=== PATIENT | female | born 1960 | race Caucasian/White ===

== ENCOUNTER 2016-02-28 03:14 | Inpatient (IN) | payer OTHER ==
[~2016-02-28] VITALS: Ht 157.5 cm; Wt 74.3 kg
[2016-02-28] VITALS (17 sets, daily range): BP systolic 99–150; BP diastolic 49–97
--- NOTE | 2016-02-28 05:27 | ED CLINICAL REPORT ---
Clinical Report - Physicians/Mid Levels [facility] [address] [place] [address] 02/28/2016 3:15 Patient: ALFREDO KHAN Time Seen: 03:24; initial patient contact. Arrived- By ambulance. Historian- patient and EMS personnel. HISTORY OF PRESENT ILLNESS Chief Complaint: DYSPNEA and HISTORY OF CHRONIC OBSTRUCTIVE PULMONARY DISEASE. This started yesterday and is still present and worsening. It was gradual in onset and has been constant. The dyspnea is severe. No improvement of dyspnea with rest. The patient has had sputum production, a cough, wheezing, dyspnea on exertion and anxiety. No fever, sweating episodes, chills or chest pain or discomfort. No calf pain, foot swelling, orthopnea, paroxysmal nocturnal dyspnea or dizziness. No palpitations. Similar symptoms previously: Many times. Recent medical care: The patient was seen recently in a clinic. ( Dx'd w/ flu 2 weeks ago, Tx'd w/ Tamiflu and steroids). REVIEW OF SYSTEMS No nasal discharge or sinus drainage. All systems otherwise negative, except as recorded above. PAST HISTORY Emphysema. Surgeries: Had hysterectomy. Medications: None. Allergies: Codeine. SOCIAL HISTORY Current every day smoker. ADDITIONAL NOTES The nursing notes have been reviewed with agreement regarding the chief complaint, PMH and patient medications and allergies. PHYSICAL EXAM Vital Signs: 02/28/2016 03:19 BP: 160/87. HR: 100. RR: 30. O2 saturation: 100%. Temp: 98 F. Have been reviewed. Hypertensive. Heart rate normal. Tachypneic. Temperature normal. Oxygen saturation: on oxygen- oxygen saturation normal. Appearance: Anxious. Patient in moderate distress. ENT: Pharynx normal. Neck: Normal inspection. No jugular venous distention. CVS: Normal heart rate and rhythm. Heart sounds normal. Respiratory: Moderate respiratory distress with accessory muscle use, retractions, anxiety, tachypnea and hyperventilation. Speaks in single words. Moderately prolonged expirations. Moderately decreased air movement diffusely over both lungs. Expiratory mild bilateral wheezes diffusely. Back: Normal inspection. Skin: Skin warm and dry. Normal skin color. No rash. Extremities: No calf tenderness. No lower extremity edema. Neuro: Oriented X 3. No motor deficit. LABS, X-RAYS, AND EKG EKG: EKG time: (033). No acute process. No acute ischemia. Normal EKG. Normal sinus rhythm. Rate: 100. Normal P waves. Normal PORTILLO. Normal QRS complex. Normal axis. Normal ST and T waves, QT and QTc. Prior EKG unavailable. The study has been interpreted contemporaneously by me. The study has been independently viewed by me. The EKG appears to be a good tracing. Interpretation time: 333. Chest X-ray: No acute disease. Moderate hyperinflation present on the right and left with flattening of the diaphragm. Consistent with COPD. No infiltrate. Views: AP. Technique: good. The X-rays were independently viewed by me and interpreted contemporaneously by me. Prior films were not available for comparison. Interpretation time: 339. Laboratory Tests: CBC w Diff: (ETHAN: 02/28/2016 03:28) ( OrgRcvd 02/28/2016 03:37) Final results Test Result Flag Units (Reference) WHITE BLOOD COUNT 14.0 H K/uL (4.5-11.5) RED BLOOD COUNT 4.34 M/uL (4.00-5.20) HEMOGLOBIN 13.4 gm/dL (12.0-16.0) HEMATOCRIT 40.7 % (36.0-46.0) MEAN CELL VOLUME 94 fL (80-100) MEAN CORPUSCULAR HGB 31 pg (26-34) MEAN CORPUSCULAR HGB CONC 33 g/dL (31-37) RED CELL DISTRIBUTION WIDTH 13.4 % (11.6-14.8) PLATELET COUNT 292 K/uL (150-400) NEUTROPHIL % 79.3 H % (50-75) LYMPH % 12.4 L % (25-40) MONO % 6.3 % (3-14) EOSINOPHIL % 1.8 % (0-4) BASOPHIL % 0.2 % (0-2) [id number]: (ETHAN: 02/28/2016 03:28) ( MsgRcvd 02/28/2016 03:44) Final results Test Result Flag Units (Reference) D-DIMER QUANTITATIVE 0.42 ug/mLFEU (0.27-0.52) The primary value of this quantitative assay relates toits negative predictive value (i.e. exclusion) of pulmonaryembolism/deep vein thrombosis/DIC.Elevated levels of d-dimer may also occur with:, age, cancer, inflammation, liver disease,post-op, infection, hematoma, coronary disease, peripheralarteriopathy, bleeding disorders and thrombolytic treatment.Results should be correlated with other clinical andradiological data.Testing Methodology: Latex Immunoassay BNP: (ETHAN: 02/28/2016 03:28) ( OrgRcvd 02/28/2016 03:50) Final results Test Result Flag Units (Reference) B-TYPE NATRIURETIC PEPTIDE 24.5 pg/ml (5-100) CMP: (ETHAN: 02/28/2016 03:28) ( MsgRcvd 02/28/2016 03:49) Final results Test Result Flag Units (Reference) GLUCOSE 156 H mg/dL (70-110) BUN 9 mg/dL (7-18) CREATININE 0.7 mg/dL (0.6-1.3) Estimated GFR >60 mL/min Estimated GFR- >60 mL/min Note: Persistent reduction over 3 months in eGFR<60 mL/min/1.73 m2 defines CKD. Patients with eGFR values>=60 mL/min/1.73 m2 may also have CKD if evidence ofpersistent proteinuria. Additional information may be foundat [email or web address].org. SODIUM 139 mmol/L (136-145) POTASSIUM 4.3 mmol/L (3.5-5.1) CHLORIDE 103 mmol/L (98-107) CARBON DIOXIDE 26 mmol/L (21-32) CALCIUM 8.3 L mg/dL (8.5-10.1) TOTAL PROTEIN 7.2 g/dL (6.4-8.2) ALBUMIN 3.6 g/dL (3.3-5.0) BILIRUBIN, TOTAL 0.7 mg/dL (0.0-1.0) ALKALINE PHOSPHATASE 71 U/L (46-116) AST (SGOT) 47 H U/L (15-37) ALT (SGPT) 113 H U/L (12-78) ABG: (ETHAN: 02/28/2016 04:16) ( MsgRcvd 02/28/2016 04:26) Final results Test Result Flag Units (Reference) FIO2 0.28 L % (20-101) ABG MODE OF DELIVERY HFNC MODIFIED RICKIE TEST POSITIVE? NO LITERS PER MIN. 20 L/MIN (0-20) ARTERIAL BLOOD GAS SITE LR ARTERIAL BLOOD GAS pH 7.34 L (7.35-7.45) ABG PCO2 42.8 mmHg (35-45) ABG PO2 74.6 L mmHg (80.0-100.0) ABG BASE EXCESS -2.8 H mmol/L (-6.0--6.0) ABG HCO3 22.9 mmol/L (20.0-26.0) ABG TCO2 24.2 mmol/L (24.0-30.0) ABG QuYpI2i 73.6 H mmHg (7.0-14.0) *NOTE: Normal rangeis based on aFIO2 of 21% ABG SAT O2 95.2 % (95.1-100.0) ABG TOTAL HEMOGLOBIN 13.3 g/dL (12.0-16.0) ABG O2 HEMOGLOBIN 93.7 L % (95.0-100.0) ABG CARBOXYHEMOGLOBIN 1.5 % (0.5-1.5) ABG METHEMOGLOBIN 0.1 L % (0.4-1.5) ABG RHEMOGLOBIN 4.7 % COMMENTS HFNC @28%/ 2OLPM . PROGRESS AND PROCEDURES Discussed case with hospitalist, (call returned 05:27 Dr. Garcia). Reviewed test results. Agreed upon treatment plan and decision to admit. Health care provider will see patient in ED. Disposition: Admitted to the Critical Care Unit. Condition: stable. Admit decision based on need for intensive care and stabilization of condition. CLINICAL IMPRESSION Acute exacerbation of COPD. Hypoxia. (Electronically signed by Johann Perez Dr. 02/28/2016 7:53)
--- NOTE | 2016-02-28 05:27 | ED CLINICAL REPORT ---
Clinical Report - Physicians/Mid Levels [facility] [address] [place] [address] 02/28/2016 3:15 Patient: ALFREDO KHAN Time Seen: 03:24; initial patient contact. Arrived- By ambulance. Historian- patient and EMS personnel. HISTORY OF PRESENT ILLNESS Chief Complaint: DYSPNEA and HISTORY OF CHRONIC OBSTRUCTIVE PULMONARY DISEASE. This started yesterday and is still present and worsening. It was gradual in onset and has been constant. The dyspnea is severe. No improvement of dyspnea with rest. The patient has had sputum production, a cough, wheezing, dyspnea on exertion and anxiety. No fever, sweating episodes, chills or chest pain or discomfort. No calf pain, foot swelling, orthopnea, paroxysmal nocturnal dyspnea or dizziness. No palpitations. Similar symptoms previously: Many times. Recent medical care: The patient was seen recently in a clinic. ( Dx'd w/ flu 2 weeks ago, Tx'd w/ Tamiflu and steroids). REVIEW OF SYSTEMS No nasal discharge or sinus drainage. All systems otherwise negative, except as recorded above. PAST HISTORY Emphysema. Surgeries: Had hysterectomy. Medications: None. Allergies: Codeine. SOCIAL HISTORY Current every day smoker. ADDITIONAL NOTES The nursing notes have been reviewed with agreement regarding the chief complaint, PMH and patient medications and allergies. PHYSICAL EXAM Vital Signs: 02/28/2016 03:19 BP: 160/87. HR: 100. RR: 30. O2 saturation: 100%. Temp: 98 F. Have been reviewed. Hypertensive. Heart rate normal. Tachypneic. Temperature normal. Oxygen saturation: on oxygen- oxygen saturation normal. Appearance: Anxious. Patient in moderate distress. ENT: Pharynx normal. Neck: Normal inspection. No jugular venous distention. CVS: Normal heart rate and rhythm. Heart sounds normal. Respiratory: Moderate respiratory distress with accessory muscle use, retractions, anxiety, tachypnea and hyperventilation. Speaks in single words. Moderately prolonged expirations. Moderately decreased air movement diffusely over both lungs. Expiratory mild bilateral wheezes diffusely. Back: Normal inspection. Skin: Skin warm and dry. Normal skin color. No rash. Extremities: No calf tenderness. No lower extremity edema. Neuro: Oriented X 3. No motor deficit. LABS, X-RAYS, AND EKG EKG: EKG time: (033). No acute process. No acute ischemia. Normal EKG. Normal sinus rhythm. Rate: 100. Normal P waves. Normal PORTILLO. Normal QRS complex. Normal axis. Normal ST and T waves, QT and QTc. Prior EKG unavailable. The study has been interpreted contemporaneously by me. The study has been independently viewed by me. The EKG appears to be a good tracing. Interpretation time: 333. Chest X-ray: No acute disease. Moderate hyperinflation present on the right and left with flattening of the diaphragm. Consistent with COPD. No infiltrate. Views: AP. Technique: good. The X-rays were independently viewed by me and interpreted contemporaneously by me. Prior films were not available for comparison. Interpretation time: 339. Laboratory Tests: CBC w Diff: (ETHAN: 02/28/2016 03:28) ( MigRcvd 02/28/2016 03:37) Final results Test Result Flag Units (Reference) WHITE BLOOD COUNT 14.0 H K/uL (4.5-11.5) RED BLOOD COUNT 4.34 M/uL (4.00-5.20) HEMOGLOBIN 13.4 gm/dL (12.0-16.0) HEMATOCRIT 40.7 % (36.0-46.0) MEAN CELL VOLUME 94 fL (80-100) MEAN CORPUSCULAR HGB 31 pg (26-34) MEAN CORPUSCULAR HGB CONC 33 g/dL (31-37) RED CELL DISTRIBUTION WIDTH 13.4 % (11.6-14.8) PLATELET COUNT 292 K/uL (150-400) NEUTROPHIL % 79.3 H % (50-75) LYMPH % 12.4 L % (25-40) MONO % 6.3 % (3-14) EOSINOPHIL % 1.8 % (0-4) BASOPHIL % 0.2 % (0-2) [id number]: (ETHAN: 02/28/2016 03:28) ( MsgRcvd 02/28/2016 03:44) Final results Test Result Flag Units (Reference) D-DIMER QUANTITATIVE 0.42 ug/mLFEU (0.27-0.52) The primary value of this quantitative assay relates toits negative predictive value (i.e. exclusion) of pulmonaryembolism/deep vein thrombosis/DIC.Elevated levels of d-dimer may also occur with:, age, cancer, inflammation, liver disease,post-op, infection, hematoma, coronary disease, peripheralarteriopathy, bleeding disorders and thrombolytic treatment.Results should be correlated with other clinical andradiological data.Testing Methodology: Latex Immunoassay BNP: (ETHAN: 02/28/2016 03:28) ( MigRcvd 02/28/2016 03:50) Final results Test Result Flag Units (Reference) B-TYPE NATRIURETIC PEPTIDE 24.5 pg/ml (5-100) CMP: (ETHAN: 02/28/2016 03:28) ( MsgRcvd 02/28/2016 03:49) Final results Test Result Flag Units (Reference) GLUCOSE 156 H mg/dL (70-110) BUN 9 mg/dL (7-18) CREATININE 0.7 mg/dL (0.6-1.3) Estimated GFR >60 mL/min Estimated GFR- >60 mL/min Note: Persistent reduction over 3 months in eGFR<60 mL/min/1.73 m2 defines CKD. Patients with eGFR values>=60 mL/min/1.73 m2 may also have CKD if evidence ofpersistent proteinuria. Additional information may be foundat [email or web address].org. SODIUM 139 mmol/L (136-145) POTASSIUM 4.3 mmol/L (3.5-5.1) CHLORIDE 103 mmol/L (98-107) CARBON DIOXIDE 26 mmol/L (21-32) CALCIUM 8.3 L mg/dL (8.5-10.1) TOTAL PROTEIN 7.2 g/dL (6.4-8.2) ALBUMIN 3.6 g/dL (3.3-5.0) BILIRUBIN, TOTAL 0.7 mg/dL (0.0-1.0) ALKALINE PHOSPHATASE 71 U/L (46-116) AST (SGOT) 47 H U/L (15-37) ALT (SGPT) 113 H U/L (12-78) ABG: (ETHAN: 02/28/2016 04:16) ( MsgRcvd 02/28/2016 04:26) Final results Test Result Flag Units (Reference) FIO2 0.28 L % (20-101) ABG MODE OF DELIVERY HFNC MODIFIED RICKIE TEST POSITIVE? NO LITERS PER MIN. 20 L/MIN (0-20) ARTERIAL BLOOD GAS SITE LR ARTERIAL BLOOD GAS pH 7.34 L (7.35-7.45) ABG PCO2 42.8 mmHg (35-45) ABG PO2 74.6 L mmHg (80.0-100.0) ABG BASE EXCESS -2.8 H mmol/L (-6.0--6.0) ABG HCO3 22.9 mmol/L (20.0-26.0) ABG TCO2 24.2 mmol/L (24.0-30.0) ABG CrReY5m 73.6 H mmHg (7.0-14.0) *NOTE: Normal rangeis based on aFIO2 of 21% ABG SAT O2 95.2 % (95.1-100.0) ABG TOTAL HEMOGLOBIN 13.3 g/dL (12.0-16.0) ABG O2 HEMOGLOBIN 93.7 L % (95.0-100.0) ABG CARBOXYHEMOGLOBIN 1.5 % (0.5-1.5) ABG METHEMOGLOBIN 0.1 L % (0.4-1.5) ABG RHEMOGLOBIN 4.7 % COMMENTS HFNC @28%/ 2OLPM . PROGRESS AND PROCEDURES Discussed case with hospitalist, (call returned 05:27 Dr. Garcia). Reviewed test results. Agreed upon treatment plan and decision to admit. Health care provider will see patient in ED. Disposition: Admitted to the Critical Care Unit. Condition: stable. Admit decision based on need for intensive care and stabilization of condition. CLINICAL IMPRESSION Acute exacerbation of COPD. Hypoxia. (Electronically signed by Johann Perez Dr. 02/28/2016 7:53)
--- NOTE | 2016-02-28 05:28 | ED ORDER SUMMARY ---
..... Patient: ALFREDO KHAN OrderSheet [facility] VisitID: [id number] [address] [place] [address] 55y, F Registration Date/Time: 02/28/2016 ORDER SHEET Weight: 72.5 kg (stated) Allergies: Codeine GENERAL ORDERS: Chest 1V Urgent (03:26 02/28/2016 Vandana Harris) (Ack 3:27 CHagerty ER Wine Fermenter) (3:38 JQuarnoldo R.N.) CBC w Diff Urgent (03:02/28/2016 Vandana Harris) (Ack 3:27 CHagerty ER Wine Fermenter) (3:30 Dennis R.N.) CMP Urgent (03:02/28/2016 Vandana Harris) (Ack 3:27 CHagerty ER Wine Fermenter) (3:30 Dennis R.N.) BNP Urgent (03:02/28/2016 Vandana Harris) (Ack 3:27 CHagerty ER Wine Fermenter) (3:30 Dennis R.N.) D-Dimer Urgent (03:26 02/28/2016 Vandana Harris) (Ack 3:27 CHagerty ER Wine Fermenter) (3:30 Dennis R.N.) ABG (G) Urgent (04:16 02/28/2016 Zackerty ER Wine Fermenter verbal order read back to Vandana Harris) (Ack 4:18 CHagerty ER Wine Fermenter) (5:54 Dennis R.N.) MEDICATION ORDERS: Prednisone PO 40 mg (NOW) (03:24 02/28/2016 Vandana Harris) (3:30 Dennis R.N.) Levaquin PO 500 mg (NOW) (03:24 02/28/2016 Vandana Harris) (3:30 Dennis R.N.) IV FLUIDS: ORDER SHEET NOTES: [Electronically signed by Jose Martinez R.N. (06:55 02/28/2016)] [Electronically signed by Johann Perez Dr. (07:53 02/28/2016)] [Electronically locked/signed by Jose Martinez R.N. (06:55 02/28/2016)]
--- NOTE | 2016-02-28 05:28 | ED NURSING NOTES ---
Clinical Report - Nurses [facility] [address] [place] [address] 02/28/2016 3:15 Patient: ALFREDO KHAN TRIAGE Triage time 0320. Acuity: LEVEL 2. Chief Complaint: SHORTNESS OF BREATH and DIFFICULTY BREATHING. --03:29 Jose Martinez R.N. 03:19 02/28/16. BP: 160/87. HR: 100. RR: 30. O2 saturation: 100%. Temp: 98 F. Pain level now 0/10. --03:29 Jose Martinez R.N. Weight: 72.5 kg stated. Height/Length: 62 inches Per Patient. BMI: 29.3. --03:27 Jose Martinez R.N. Medications None. --03:23 Jose Martinez R.N. Allergies Codeine. --03:22 Jose Martinez R.N. History Arrived by EMS. Historian: EMS and patient. This started today. 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 PAST MEDICAL HX: Chronic obstructive pulmonary disease. SOCIAL HX: Former smoker. FALL RISK ASSESSMENT: Fall risk assessment completed. No fall risk identified. NUTRITIONAL RISK ASSESSMENT: The nutritional risk assessment revealed no deficiencies. FUNCTIONAL ASSESSMENT: Functional assessment: no impairments noted. LEARNING NEEDS ASSESSMENT: The learning needs assessment revealed no barriers. SKIN INTEGRITY ASSESSMENT: Skin integrity risk assessment completed. No skin integrity risk identified. --03:29 Jose Martinez R.N. PROBLEMS: COPD - Chronic Obstructive Pulmonary Disease. --03:23 Jose Martinez R.N. ADDITIONAL SURGERIES: Hysterectomy. --03:23 Jose Martinez R.N. PHYSICAL ASSESSMENT GENERAL / NEURO / PSYCH: Alert. Oriented X 4. Appears in distress. HEENT: Mucous membranes are pink. RESPIRATORY: Moderate respiratory distress. The patient can speak in full sentences. Chest nontender. Decreased breath sounds. CVS: Capillary refill less than 2 seconds. GI / : Abdomen soft and nontender. SKIN: Skin is warm and dry. Normal skin turgor. --03:29 Jose Martinez R.N. RESPIRATORY: Wheezing present. --03:41 Jose Martinez R.N. NURSING PROGRESS NOTES Oxygen administered. Monitoring of patient in place. Patient gowned. Head of bed elevated. Reassurance given. Patient identifiers checked. Call light placed in reach. Bed placed in lowest position. Brakes of bed on. --03:30 Jose Martinez R.N. 03:30 02/28/2016 Levaquin (Levofloxacin) PO 500 mg given. --03:30 Jose Martinez R.N. 03:30 02/28/2016 Prednisone PO 40 mg given. Allergies verified and confirmed 5 rights. --03:30 Jose Martinez R.N. 03:35. Patient ID band checked for patient name and birthdate: patient confirmed. Blood samples drawn from the peripheral IV site by nurse ; labeled in presence of the patient and sent to lab: rainbow set. Initial blood discarded and additional blood sent to lab. Line flushed with 10 mL normal saline post blood draw. --04:18 Bi Andre R.N. EKG time: (3:34). EKG was performed by a tech and shown to the ED physician. --04:25 Willian العلي. DISPOSITION / DISCHARGE Departure time: 0650. Condition at departure: improved. Admitted to the Critical Care Unit (650 AM). --06:54 Jose Martinez R.N. 06:53 02/28/16. BP: 149/74. HR: 88. RR: 20. O2 saturation: 96%. Temp: 98 F. Pain level now 0/10. --06:54 Jose Martinez R.N. Report was given to a nurse via a phone call. Report included patient's care, treatment, medications, reviewed medication reconcilliation, and condition (including any recent changes or anticipated changes). All questions were answered. Report was acknowledged and care was transferred. --06:55 Jose Martinez R.N. Locked/Released at 02/28/2016 6:55 by Jose Martinez R.N.
--- NOTE | 2016-02-28 05:28 | ED ORDER SUMMARY ---
..... Patient: ALFREDO KHAN OrderSheet [facility] VisitID: [id number] [address] [place] [address] 55y, F Registration Date/Time: 02/28/2016 ORDER SHEET Weight: 72.5 kg (stated) Allergies: Codeine GENERAL ORDERS: Chest 1V Urgent (03:26 02/28/2016 Vandana Harris) (Ack 3:27 CHagerty ER Oracle Distribution Consultant) (3:38 JQuarnoldo R.N.) CBC w Diff Urgent (03:02/28/2016 Vandana Harris) (Ack 3:27 CHagerty ER [employer] Distribution Consultant) (3:30 Dennis R.N.) CMP Urgent (03:02/28/2016 Vandana Harris) (Ack 3:27 CHagerty ER [employer] Distribution Consultant) (3:30 Dennis R.N.) BNP Urgent (03:02/28/2016 Vandana Harris) (Ack 3:27 CHagerty ER Oracle Distribution Consultant) (3:30 Dennis R.N.) D-Dimer Urgent (03:26 02/28/2016 Vandana Harris) (Ack 3:27 CHagerty ER [employer] Distribution Consultant) (3:30 Dennis R.N.) ABG (G) Urgent (04:16 02/28/2016 Zackerty ER Oracle Distribution Consultant verbal order read back to Vandana Harris) (Ack 4:18 CHagerty ER Oracle Distribution Consultant) (5:54 Dennis R.N.) MEDICATION ORDERS: Prednisone PO 40 mg (NOW) (03:24 02/28/2016 Vandana Harris) (3:30 Dennis R.N.) Levaquin PO 500 mg (NOW) (03:24 02/28/2016 Vandana Harris) (3:30 Dennis R.N.) IV FLUIDS: ORDER SHEET NOTES: [Electronically signed by Jose Mratinez R.N. (06:55 02/28/2016)] [Electronically signed by Johann Perez Dr. (07:53 02/28/2016)] [Electronically locked/signed by Jose Martinez R.N. (06:55 02/28/2016)]
--- NOTE | 2016-02-28 05:28 | ED NURSING NOTES ---
Clinical Report - Nurses [facility] [address] [place] [address] 02/28/2016 3:15 Patient: ALFREDO KHAN TRIAGE Triage time 0320. Acuity: LEVEL 2. Chief Complaint: SHORTNESS OF BREATH and DIFFICULTY BREATHING. --03:29 Jose Martinez R.N. 03:19 02/28/16. BP: 160/87. HR: 100. RR: 30. O2 saturation: 100%. Temp: 98 F. Pain level now 0/10. --03:29 Jose Martinez R.N. Weight: 72.5 kg stated. Height/Length: 62 inches Per Patient. BMI: 29.3. --03:27 Jose Martinez R.N. Medications None. --03:23 Jose Martinez R.N. Allergies Codeine. --03:22 Jose Martinez R.N. History Arrived by EMS. Historian: EMS and patient. This started today. 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 PAST MEDICAL HX: Chronic obstructive pulmonary disease. SOCIAL HX: Former smoker. FALL RISK ASSESSMENT: Fall risk assessment completed. No fall risk identified. NUTRITIONAL RISK ASSESSMENT: The nutritional risk assessment revealed no deficiencies. FUNCTIONAL ASSESSMENT: Functional assessment: no impairments noted. LEARNING NEEDS ASSESSMENT: The learning needs assessment revealed no barriers. SKIN INTEGRITY ASSESSMENT: Skin integrity risk assessment completed. No skin integrity risk identified. --03:29 Jose Martinez R.N. PROBLEMS: COPD - Chronic Obstructive Pulmonary Disease. --03:23 Jose Martinez R.N. ADDITIONAL SURGERIES: Hysterectomy. --03:23 Jose Martinez R.N. PHYSICAL ASSESSMENT GENERAL / NEURO / PSYCH: Alert. Oriented X 4. Appears in distress. HEENT: Mucous membranes are pink. RESPIRATORY: Moderate respiratory distress. The patient can speak in full sentences. Chest nontender. Decreased breath sounds. CVS: Capillary refill less than 2 seconds. GI / : Abdomen soft and nontender. SKIN: Skin is warm and dry. Normal skin turgor. --03:29 Jose Martinez R.N. RESPIRATORY: Wheezing present. --03:41 Jose Martinez R.N. NURSING PROGRESS NOTES Oxygen administered. Monitoring of patient in place. Patient gowned. Head of bed elevated. Reassurance given. Patient identifiers checked. Call light placed in reach. Bed placed in lowest position. Brakes of bed on. --03:30 Jose Martinez R.N. 03:30 02/28/2016 Levaquin (Levofloxacin) PO 500 mg given. --03:30 Jose Martinez R.N. 03:30 02/28/2016 Prednisone PO 40 mg given. Allergies verified and confirmed 5 rights. --03:30 Jose Martinez R.N. 03:35. Patient ID band checked for patient name and birthdate: patient confirmed. Blood samples drawn from the peripheral IV site by nurse ; labeled in presence of the patient and sent to lab: rainbow set. Initial blood discarded and additional blood sent to lab. Line flushed with 10 mL normal saline post blood draw. --04:18 Bi Andre R.N. EKG time: (3:34). EKG was performed by a tech and shown to the ED physician. --04:25 Willian العلي. DISPOSITION / DISCHARGE Departure time: 0650. Condition at departure: improved. Admitted to the Critical Care Unit (650 AM). --06:54 Jose Martinez R.N. 06:53 02/28/16. BP: 149/74. HR: 88. RR: 20. O2 saturation: 96%. Temp: 98 F. Pain level now 0/10. --06:54 Jose Martinez R.N. Report was given to a nurse via a phone call. Report included patient's care, treatment, medications, reviewed medication reconcilliation, and condition (including any recent changes or anticipated changes). All questions were answered. Report was acknowledged and care was transferred. --06:55 Jose Martinez R.N. Locked/Released at 02/28/2016 6:55 by Jose Martinez R.N.
--- NOTE | 2016-02-28 05:58 | DIAGNOSTIC IMAGING REPORT ---
PROCEDURE: XR CHEST 1 VIEW INDICATION: SHORTNESS OF BREATH TECHNIQUE: Portable AP view (0335 hours). COMPARISON: Compared to chest x-ray [id number]. FINDINGS: Lungs are clear. Heart and mediastinum are normal. Thorax is normal. IMPRESSION: 1. Negative chest.
--- NOTE | 2016-02-28 07:53 | ED MED RECONCILIATION SUMMARY ---
Patient: ALFREDO KHAN Medication Reconciliation Report [facility] VisitID: [id number] [address] [place] [address] 55y, F Registration Date/Time: 02/28/2016 Weight: 72.5 kg Height/Length: 62 in. BMI: 29.3 ALLERGIES: Codeine The patient's Home Medications are listed below: NONE. The source(s) of the original Home Medication information: Not obtained. The following Medications were given to the patient in the Emergency Department: Levaquin [PO] PO 500 mg, administered: 02/28/2016 3:30:00 AM Prednisone [PO] PO 40 mg, administered: 02/28/2016 3:30:00 AM The following Medications were prescribed to the patient: None.
--- NOTE | 2016-02-28 07:53 | ED DISCHARGE INSTRUCTIONS ---
Patient: ALFREDO KHAN General Instructions [facility] VisitID: [id number] [address] [place] [address] 55y, F Registration Date/Time: 02/28/2016 Acute exacerbation of COPD. Hypoxia. (Electronically signed by Johann Perez Dr. 02/28/2016 7:53)
--- NOTE | 2016-02-28 07:53 | ED MED RECONCILIATION SUMMARY ---
Patient: ALFREDO KHAN Medication Reconciliation Report [facility] VisitID: [id number] [address] [place] [address] 55y, F Registration Date/Time: 02/28/2016 Weight: 72.5 kg Height/Length: 62 in. BMI: 29.3 ALLERGIES: Codeine The patient's Home Medications are listed below: NONE. The source(s) of the original Home Medication information: Not obtained. The following Medications were given to the patient in the Emergency Department: Levaquin [PO] PO 500 mg, administered: 02/28/2016 3:30:00 AM Prednisone [PO] PO 40 mg, administered: 02/28/2016 3:30:00 AM The following Medications were prescribed to the patient: None.
--- NOTE | 2016-02-28 07:53 | ED MAR SUMMARY ---
..... Medication Administration Record [facility] [address] [place] [address] Patient: ALFREDO KHAN Visit ID: [id number] 55y, F Weight: 72.5 kg Height/Length: 62 in BMI: 29.3 ALLERGIES: Codeine Given 03:02/28/2016 Jose Martinez R.N. Medication Administered: PREDNISONE [PO], Dose: 40 mg PO. Medication Ordered: Prednisone PO 40 mg (NOW). Given 03:02/28/2016 Jose Martinez R.N. Medication Administered: LEVAQUIN [PO] (LEVOFLOXACIN), Dose: 500 mg PO. Medication Ordered: Levaquin PO 500 mg (NOW).
--- NOTE | 2016-02-28 07:53 | ED MAR SUMMARY ---
..... Medication Administration Record [facility] [address] [place] [address] Patient: ALFREDO KHAN Visit ID: [id number] 55y, F Weight: 72.5 kg Height/Length: 62 in BMI: 29.3 ALLERGIES: Codeine Given 03:02/28/2016 Jose Martinez R.N. Medication Administered: PREDNISONE [PO], Dose: 40 mg PO. Medication Ordered: Prednisone PO 40 mg (NOW). Given 03:02/28/2016 Jose Martinez R.N. Medication Administered: LEVAQUIN [PO] (LEVOFLOXACIN), Dose: 500 mg PO. Medication Ordered: Levaquin PO 500 mg (NOW).
--- NOTE | 2016-02-28 07:53 | ED DISCHARGE INSTRUCTIONS ---
Patient: ALFREDO KHAN General Instructions [facility] VisitID: [id number] [address] [place] [address] 55y, F Registration Date/Time: 02/28/2016 Acute exacerbation of COPD. Hypoxia. (Electronically signed by Johann Perez Dr. 02/28/2016 7:53)
--- NOTE | 2016-02-28 08:09 | HISTORY AND PHYSICAL ---
ADMITTED: 02/28/2016 HISTORY OF PRESENT ILLNESS: The patient initially seen in the emergency department about 5:30 a.m. The patient is a 55-year-old woman who developed progressively worsening shortness breath and wheezing over the last 24 hours, not responding to home albuterol and Combivent inhalers. She called 911 early this morning after midnight and was brought into the emergency department. She required BiPAP on the way into the hospital due to pronounced respiratory distress and low oxygen saturations. She was able to be switched to high flow nasal cannula oxygen in the emergency department after she had had nebulizer treatment with DuoNeb and administration of prednisone 40 mg p.o. and Levaquin. She was slowly improving. She states she had an episode of flu 2 weeks ago, although she not sure that the influenza screen was done. She was treated with Zithromax and prednisone for a 5-day treatment and was given a Combivent Respimat inhaler in addition to her albuterol inhaler. She felt this was helping a little bit. She tried to return to work and worked about 8 days straight and then thinks she got overtired. She was out and about yesterday helping some friends, but was quite short of breath and her breathing worsened throughout the day and evening. She became extremely short of breath as the evening progressed, causing her to call 911. She is a former smoker. She quit about 2 weeks ago. She denies smoking since then, though she mentioned in the emergency department that may have smoked a cigarette or 2 in the last week. She does not have usual doctor in the area that she follows with. MEDICAL/SURGICAL HISTORY: Past medical history: Remarkable for COPD of a mild-to -moderate degree. She had one episode of severe pneumonia about 6 years ago and was hospitalized here at [facility] and had septicemia at that time. She has not had pneumonias since. She thinks she has a tendency towards high blood pressure, but has not been treated for this. She denies other problems. 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 She also has had 1 normal spontaneous vaginal delivery and 1 . She had a hysterectomy with salpingo- oophorectomy done about 5 years ago for a number of pelvic problems. She has done well since then. She denies other surgeries. MEDICATIONS: 1. Albuterol metered-dose inhaler 2. Combivent Respimat inhaler. ALLERGIES: 1. CODEINE. 2. LATEX. 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 She is and is planning to be . Her first of melanoma. She has been a smoker up until 2 weeks ago. She does drink a glass of wine fairly regularly. FAMILY HISTORY: Remarkable for a father who of leukemia at age 56. Mother of a brain tumor at age 60. REVIEW OF SYSTEMS: HEENT: Has been okay. Respiratory: As noted above. Cardiovascular is okay with no heart problems that she has been aware of. Gastroenterology has been okay except for some slight heartburn at times. Musculoskeletal is okay with no major problems other than amputation of her right index finger as a child. Neurologic is okay. Psychiatric is okay. Skin is okay with no problems. PHYSICAL EXAMINATION: GENERAL: Reveals the patient to be a white female, appearing to be her stated age. She is having some faint wheezing. She is on high flow nasal cannula oxygen. VITAL SIGNS: Initial blood pressure readings in the emergency department show blood pressure 160/87 range. Temperature is 98. Pulse is around 100. HEENT: Head is normal. Ear canals and tympanic membranes are normal. Eyes show pupils equal, round, react to light with normal extraocular movements. Fundi show flat disks, normal vessels. Nose and throat are clear. Dentition is okay. NECK: Shows no adenopathy. BREASTS: Show no masses. There is no axillary adenopathy. CHEST: Reveals diffuse faint inspiratory rhonchi and quite diffuse high-pitched expiratory wheezes. Air movement is significantly reduced. HEART: Reveals normal S1 and S2 with no distinct murmur. ABDOMEN: Nontender with no organomegaly or mass. Bowel tones are normal. PELVIC: Not done. RECTAL: Not done. EXTREMITIES: Show no edema. Pulses are normal. NEUROLOGIC: Reveals the patient to be alert and oriented x3. Cranial nerves normal. Motor and sensory exams are normal. SKIN: Shows no rashes or skin growths. LAB/IMAGING: Chest x-ray shows heart size to be normal with no infiltrate. Diaphragms are somewhat flattened. EKG shows normal sinus rhythm with no significant ST-segment elevations or depressions. [place] is normal. Laboratory studies show white blood cell count to be 14,000 with hemoglobin of 13.3 and hematocrit 40.7. BNP is 24.5. Sodium is 139, potassium 4.3, chloride 103, CO2 of 26, glucose 156, creatinine 0.7, BUN is 9. SGOT is 47, SGPT is 113, bilirubin 0.7. D-dimer is 0.42. ABGs on high flow nasal cannula oxygen show pH 7.34, pCO2 42 and PO2 of 74.6. IMPRESSION: 1. The patient is presenting with severe chronic obstructive pulmonary disease exacerbation with marked bronchospasm. She is responding to initial treatment. She has a history of smoking and hopefully has stopped. She has history of recent respiratory illness. She is showing elevated blood pressure readings initially. She also has a somewhat elevated blood sugar and some slightly abnormal liver enzymes. PLAN: The patient is admitted to the ICU initially for the high flow nasal cannula treatment and nebulizer treatments with DuoNeb and with albuterol in between. DuoNeb treatments if necessary. She will also be started on Solu-Medrol 125 mg IV every 6 hours. She will be placed on Accu-Cheks and sliding scale insulin if necessary. She will be switched to ceftriaxone IV to cover for a low-grade bronchitis. Nasal swab will be sent for influenza. She will have vital signs followed and blood pressure treated as necessary. She will be started on lorazepam p.o. if necessary for anxiety and tremulousness related to nebulizer treatments. She will be encouraged to stop smoking. Hospitalization will probably be at least 2 midnights.
--- NOTE | 2016-02-28 08:12 | Progress Note ---
Subjective General Note Date: February 28, 2016 Admission Date: February 28, 2016 Hospital Day: 1 PCP: Suzie Ornelas M.D. Status: Inpatient Advanced Directive: FULL CODE Room: 304 Brief History: The patient is a 55-year-old white female with a significant past mental history of COPD who presented to [facility] emergency department secondary to complaints of shortness of breath. [facility] ER evaluation was consistent with exacerbation of COPD. Secondary to the above, the patient was admitted by Jovanny Garcia M.D. for further evaluation and treatment For other history present illness, past medical history, family history, social history, review of systems, and admission physical examination please see the patient's history and physical examination and ER visit note in the patient's medical record. Subjective: The patient has persistent mild shortness of breath. Significant anxiety Patient requests: Patient requests medications for anxiety Medications and Allergies Medications Current Medications Sig/Patrick Start time Last Medication Dose Route Stop Time Status Admin Methylprednisolone 125 MG Q6HR 02/27 1200 AC Sodium Succinate IV Ceftriaxone Sodium/ 50 ML DAILY 02/27 0900 AC Dextrose IV Albuterol/Ipratropium 3 ML RTQ6H 02/27 0800 AC 02/27 IN 0744 Insulin Human Lispro See Dose ACHS 02/27 0730 AC Insts (1) SC Lorazepam 0.5 MG Q6H PRN 02/27 0700 AC PO Sodium Chloride 1,000 ML ASDIRECTED 02/27 0700 AC IV Acetaminophen See Dose Q4H PRN 02/27 0645 AC Insts (2) PO Albuterol Sulfate 2.5 MG RTQ2H PRN 02/27 0645 AC IN Pantoprazole Sodium 40 MG DAILY@0600 02/27 0600 AC IV Dose Instructions: (1)Insulin Human Lispro: MEDIUM DOSE: ACCUCHECK AND SLIDING SCALE >>To change sliding scale DISCONTINUE this order and enter a NEW order. Thanks< (2)Acetaminophen: 325 - 650 MG Allergies Coded Allergies: Codeine (10/16/09) Corticosteroids (10/16/09) Metoclopramide (10/16/09) Morphine (10/16/09) Uncoded Allergies: Food Allergies: NKA Latex Allergy: N Med Allergies: Physical Exam Vital Signs / I&Os Vital Signs Date Time Temp Pulse Resp B/P Pulse O2 O2 Flow FiO2 Ox Delivery Rate 02/27 743 5.0 01/23 0705 97.9 96 23 122/78 99 Nasal 6.0 Cannula 02/27 0515 20.0 02/27 0431 20.0 02/27 0402 20.0 02/27 0345 20.0 02/27 0330 25.0 General Appearance Alert, Oriented X3, Cooperative, No acute distress Lungs minimal bilateral expiratory wheezes Cardiovascular Regular rate and rhythm, Normal S1 and S2 Abdomen Normal bowel sounds, Soft, No tenderness Extremities No cyanosis, No clubbing, No edema Neurological Grossly normal Psych/Mental Status Mental status normal, Mood normal LAB Results Laboratory Tests 02/27 02/27 02/27 0416 0328 0328 Blood Gas Sample Site LR Total CO2 (24.0 - 30.0 mmol/L) 24.2 ABG pH (7.35 - 7.45) 7.34 ABG pCO2 at Pt Temp (35 - 45 mmHg) 42.8 ABG pO2 at Pt Temp (80.0 - 100.0 mmHg) 74.6 ABG HCO3 (20.0 - 26.0 mmol/L) 22.9 ABG O2 Sat Calc/Ender (95.1 - 100.0 %) 95.2 ABG Base Excess (-6.0 - -6.0 mmol/L) -2.8 ABG Reduced Hgb (%) 4.7 ABG Carboxyhemoglobin (0.5 - 1.5 %) 1.5 ABG Methemoglobin (0.4 - 1.5 %) 0.1 Adria Test NO Other Total Hgb (12.0 - 16.0 g/dL) 13.3 A-a O2 Gradient (7.0 - 14.0 mmHg) 73.6 Hgb O2 Saturation (95.0 - 100.0 %) 93.7 O2 Liters/Min (0 - 20 L/MIN) 20 Vent Mode HFNC FiO2 (20 - 101 %) 0.28 Blood Gas Comments HFNC @28%/ 2OLPM Chemistry B-Natriuretic Peptide (5 - 100 pg/ml) 24.5 Procalcitonin (0 - 0.5 ng/mL) <0.5 02/278 Chemistry Plasma Sodium (136 - 145 mmol/L) 139 Plasma Potassium (3.5 - 5.1 mmol/L) 4.3 Plasma Chloride (98 - 107 mmol/L) 103 CO2 (Enzymatic) (21 - 32 mmol/L) 26 BUN (7 - 18 mg/dL) 9 Creatinine (0.6 - 1.3 mg/dL) 0.7 Est GFR ( Amer) (mL/min) >60 Est GFR (Non-Af Amer) (mL/min) >60 Glucose (70 - 110 mg/dL) 156 Plasma Calcium (8.5 - 10.1 mg/dL) 8.3 Total Bilirubin (0.0 - 1.0 mg/dL) 0.7 AST (15 - 37 U/L) 47 ALT (12 - 78 U/L) 113 Alkaline Phosphatase (46 - 116 U/L) 71 Total Protein (6.4 - 8.2 g/dL) 7.2 Albumin (3.3 - 5.0 g/dL) 3.6 Coagulation D-Dimer, Quantitative (0.27 - 0.52 ug/mLFEU) 0.42 Hematology WBC (4.5 - 11.5 K/uL) 14.0 RBC (4.00 - 5.20 M/uL) 4.34 Hgb (12.0 - 16.0 gm/dL) 13.4 Hct (36.0 - 46.0 %) 40.7 MCV (80 - 100 fL) 94 MCH (26 - 34 pg) 31 RDW (11.6 - 14.8 %) 13.4 Neut % (Auto) (50 - 75 %) 79.3 Lymph % (Auto) (25 - 40 %) 12.4 [place] % (Auto) (3 - 14 %) 6.3 Eos % (Auto) (0 - 4 %) 1.8 Baso % (Auto) (0 - 2 %) 0.2 Plt Count, EDTA (150 - 400 K/uL) 292 PUBS MCHC (31 - 37 g/dL) 33 Microbiology Date/Time Procedure - Status Source Growth 02/27 0900 Influenza Screen - COMP NASALPHAR 02/27 UNK MRSA Screen - COLB NASAL Assessment and Plan Problem List 1. Nicotine dependence Status Chronic Onset Date Unknown Plan -Patient with history of nicotine dependence-smoking -Recently quit smoking -NicoDerm patch when necessary -Smoking cessation education -Encourage smoking abstinence post discharge 2. Abnormal LFTs Status Acute Onset Date Unknown Plan -Patient with mild elevation of LFTs -Repeat in a.m. -No history of significant alcohol abuse but patient does consume alcoholic beverages -Monitor 3. Hyperglycemia Status Acute Onset Date Unknown Plan -Patient with findings of hyperglycemia -Check hemoglobin A1c -Insulin sliding scale -Monitor 4. COPD exacerbation Plan -Patient presents with findings of exacerbation COPD -DuoNeb, albuterol, corticosteroids, oxygen administration -Antianxiety agents -Monitor -Status improved since admission Current status: Fair, improved Anticipated discharge date: Anticipated discharge in 1-2 days Anticipated discharge placement: Home Patient care time: Time spent in chart review, patient interview, physical exam, CPOE, and care documentation: 25 minutes Visit to patient today: 1 Complexity of care: Moderate E&M Codes Rounding: Inpt-Moderate/[id number]
--- NOTE | 2016-02-28 08:58 | NUR ---
Patient in bed resting at this time. Patient on 5L NC sats 99%. SOB noted with exertion. Denies pain. Patient tolerating PO intake. Clear liquid diet. Denies nausea. Anxiety noted. Ativan 0.5 mg given PO. Patient instructed to cough and deep breath frequently. Patient up to BSC independently. IV RAC patent 75cc/hr. No complaints at this time. Pleasant and cooperative with care. Will continue to monitor.
--- NOTE | 2016-02-28 09:58 | NUR ---
Patient states anxiety is better. Ativan effective. Will continue to monitor.
--- NOTE | 2016-02-28 14:58 | NUR ---
Patient complained of anxiety. Ativan 0.5 mg given PO. Will continue to monitor.
--- NOTE | 2016-02-28 15:58 | NUR ---
Patient states anxiety is better. Ativan effective. Will continue to monitor.
--- NOTE | 2016-02-28 18:30 | NUR ---
Patient sitting up in bed watching TV. Patient tolerating good PO intake. Denies pain and nausea. IV RAC patent 75cc/hr. Patient up to BSC independently. Sob noted with exertion. 3L NC sats 98%. No complaints at this time. Pleasant and cooperative with care. Will continue to monitor.
--- NOTE | 2016-02-28 21:45 | NUR ---
PT REMAINS CCU STATUS.PT IS ALERT AND ORIENTED X3. NO COMPLAINTS OF PAIN. BOUTS OF COUGHING CAUSE PT TO BECOME SOB - O2 SATS ON 3 LITERS NC AT 97%. PT COMPAINTS OF FEELING AGGITATED - MEDICATED WITH PO ATIVAN PER REQUEST. RESPIRATORY THERAPIST HAS BEEN IN TO SEE PT. NO CHEST PAIN, NO HEART PALPITATIONS. PT MOVING AROUND IN BED ON OWN. TELE SHOWS SINUS TACH, HEART RATE AT 103. LAST BLOOD PRESSUREA T 150/86. RESPIRATIONS AT 26. PT WAS GIVEN AN HS SNACK AFTER ADMINISTRATION OF INSULIN SC. IV TO RAC UNREMARKABLE - INFUSING NS AT 75/HR. CALL LIGHT WITHIN REACH. NO FURTHER REQUESTS AT THIS TIME.
[2016-02-29] VITALS (17 sets, daily range): BP systolic 107–147; BP diastolic 57–96
--- NOTE | 2016-02-29 06:12 | NUR ---
0410 - AM LABS DRAWN ORDERED. NO COMPLAINTS OF PAIN. ATIVAN PO EFFFECTIVE IN CONTROLLING ANXIETY/AGGITATION. O2 SATS AT 98% ON 2 LITERS NC. PT SOB WITH EXHERTION. NO DISTRESS NOTED. CALL LIGHT WITHIN REACH. NO REQUESTS THIS AM.
--- NOTE | 2016-02-29 07:51 | Progress Note ---
Subjective General Note Date: February 29, 2016 Admission Date: February 28, 2016 Hospital Day: 2 PCP: Suzie Ornelas M.D. Status: Inpatient Advanced Directive: FULL CODE Room: 304 Brief History: The patient is a 55-year-old white female with a significant past mental history of COPD who presented to [facility] emergency department secondary to complaints of shortness of breath. [facility] ER evaluation was consistent with exacerbation of COPD. Secondary to the above, the patient was admitted by Jovanny Garcia M.D. for further evaluation and treatment For other history present illness, past medical history, family history, social history, review of systems, and admission physical examination please see the patient's history and physical examination and ER visit note in the patient's medical record. Subjective: The patient has persistent mild shortness of breath. Significant anxiety which has improved with antianxiety agents. Slightly improved exercise tolerance Patient requests: No specific Medications and Allergies Medications Current Medications Sig/Patrick Start time Last Medication Dose Route Stop Time Status Admin Influenza Virus 0.5 ML 0900 02/28 0900 AC Vaccine IM 02/28 1600 Methylprednisolone 40 MG Q8H 02/27 2000 AC 02/28 Sodium Succinate IV 0423 Albuterol/Ipratropium 3 ML RTQ6H 02/27 0800 AC 02/28 IN 0747 Insulin Human Lispro See Dose ACHS 02/27 0730 AC 02/27 Insts (1) SC 2031 Lorazepam 0.5 MG Q6H PRN 02/27 0700 AC 02/28 PO 0426 Sodium Chloride 1,000 ML ASDIRECTED 02/27 0700 AC 02/27 IV 2142 Acetaminophen See Dose Q4H PRN 02/27 0645 AC Insts (2) PO Albuterol Sulfate 2.5 MG RTQ2H PRN 02/27 0645 AC IN Pantoprazole Sodium 40 MG DAILY@0600 02/27 0600 AC 02/28 IV 0543 Dose Instructions: (1)Insulin Human Lispro: MEDIUM DOSE: ACCUCHECK AND SLIDING SCALE >>To change sliding scale DISCONTINUE this order and enter a NEW order. Thanks< (2)Acetaminophen: 325 - 650 MG Allergies Coded Allergies: Codeine (02/28/16) Metoclopramide (02/28/16) Morphine (02/28/16) Uncoded Allergies: Food Allergies: NKA Latex Allergy: N Med Allergies: Physical Exam Vital Signs / I&Os Vital Signs Date Time Temp Pulse Resp B/P Pulse O2 O2 Flow FiO2 Ox Delivery Rate 02/28 0700 98 21 128/66 96 Nasal 1.5 Cannula 02/28 0648 98.8 114 24 96 Nasal 1.5 Cannula 02/28 0600 102 20 113/60 99 Nasal 2.0 Cannula 02/28 0556 99 Nasal 2.0 Cannula 02/28 0517 101 24 147/77 97 02/28 0400 99 21 114/75 99 02/28 0310 97.9 99 18 120/70 99 02/28 0305 3.0 02/28 0200 98 19 116/62 97 Nasal 3.0 Cannula 02/28 0111 100 19 129/77 94 02/28 0107 97.7 02/28 0000 101 21 107/57 98 02/27 2300 96 25 146/88 98 Nasal 3.0 Cannula 02/27 2204 106 19 146/89 96 Nasal 4.0 Cannula 02/27 2108 108 27 150/86 96 Nasal 4.0 Cannula 02/271 4.0 02/27 2034 Nasal 4.0 Cannula 02/27 2013 99 27 129/75 99 Nasal 3.0 Cannula 02/27 1913 102 20 136/67 98 Nasal 3.0 Cannula 02/27 1810 97.7 104 30 145/87 99 Nasal 3.0 Cannula 02/27 1710 103 32 117/72 96 Nasal 3.0 Cannula 02/27 1610 115 24 143/52 93 Nasal 3.0 Cannula 02/27 1510 100 31 116/69 96 Nasal 3.0 Cannula 02/27 1442 3.0 02/27 1401 98.6 91 20 108/67 98 Nasal 4.0 Cannula 02/27 1329 84 21 99/49 98 Nasal 4.0 Cannula 02/27 1200 98 22 138/89 100 Nasal 5.0 Cannula 02/27 1100 99 132/87 02/27 1053 97.9 102 28 127/97 99 Nasal 5.0 Cannula 02/27 0919 102 24 120/70 99 Nasal 5.0 Cannula 02/27 0800 102 102/60 I&O 02/28 0000 02/27 1600 02/27 0800 Intake Total 2127 360 Output Total 1350 1100 400 Balance 777 -740 -400 General Appearance Alert, Oriented X3, Cooperative, No acute distress Lungs minimal expiratory wheezes, slightly decreased breath sounds bilaterally Cardiovascular Regular rate and rhythm, Normal S1 and S2 Abdomen Normal bowel sounds, Soft, No tenderness Extremities No cyanosis, No clubbing, No edema Neurological Grossly normal Psych/Mental Status Mental status normal, Mood normal LAB Results Laboratory Tests 02/28 02/28 02/28 0500 0410 0400 Chemistry Plasma Sodium (136 - 145 mmol/L) Cancelled 142 Plasma Potassium (3.5 - 5.1 mmol/L) Cancelled 3.8 Plasma Chloride (98 - 107 mmol/L) Cancelled 106 CO2 (Enzymatic) (21 - 32 mmol/L) Cancelled 24 BUN (7 - 18 mg/dL) Cancelled 12 Creatinine (0.6 - 1.3 mg/dL) Cancelled 0.6 Est GFR ( Amer) (mL/min) Cancelled >60 Est GFR (Non-Af Amer) (mL/min) Cancelled >60 Glucose (70 - 110 mg/dL) Cancelled 220 Plasma Calcium (8.5 - 10.1 mg/dL) Cancelled 9.0 Plasma Magnesium (1.8 - 2.4 mg/dL) Cancelled 2.1 Total Bilirubin (0.0 - 1.0 mg/dL) 0.3 AST (15 - 37 U/L) 34 ALT (12 - 78 U/L) 102 Alkaline Phosphatase (46 - 116 U/L) 64 Total Protein (6.4 - 8.2 g/dL) 6.9 Albumin (3.3 - 5.0 g/dL) 3.4 Hematology WBC (4.5 - 11.5 K/uL) 15.9 Cancelled RBC (4.00 - 5.20 M/uL) 4.13 Cancelled Hgb (12.0 - 16.0 gm/dL) 12.8 Cancelled Hct (36.0 - 46.0 %) 39.1 Cancelled MCV (80 - 100 fL) 95 Cancelled MCH (26 - 34 pg) 31 Cancelled RDW (11.6 - 14.8 %) 13.2 Cancelled Neut % (Auto) (50 - 75 %) Pending Cancelled Lymph % (Auto) (25 - 40 %) Pending Cancelled [place] % (Auto) (3 - 14 %) Pending Cancelled Eos % (Auto) (0 - 4 %) 0 Baso % (Auto) (0 - 2 %) 0 Band Neutrophils % (0 - 8 %) Pending Cancelled Plt Count, EDTA (150 - 400 K/uL) 285 Cancelled PUBS MCHC (31 - 37 g/dL) 33 Cancelled Microbiology Date/Time Procedure - Status Source Growth 02/27 0900 Influenza Screen - COMP NASALPHAR Assessment and Plan Problem List 1. COPD exacerbation Plan -Slowly improving -Continue DuoNeb, albuterol, switch to oral corticosteroids today -Supplemental oxygen, patient still requires O2 with exertion secondary to hypoxemia -Possible discharge 1-2 days 2. Nicotine dependence Status Chronic Onset Date Unknown Plan -Smoking cessation education -NicoDerm patch when necessary -Encourage smoking abstinence post discharge 3. Abnormal LFTs Status Acute Onset Date Unknown Plan -Normal was other than mild elevation of ALT -Monitor 4. Hyperglycemia Status Acute Onset Date Unknown Plan -Blood glucose elevated -Continue insulin sliding scale -Monitor -Probably stress related increase in blood sugar Current status: Fair, improved Anticipated discharge date: Anticipated discharge in 1-2 days Anticipated discharge placement: Home Patient care time: Time spent in chart review, patient interview, physical exam, CPOE, and care documentation: 25 minutes Visit to patient today: 2 Complexity of care: Moderate E&M Codes Rounding: Inpt-Moderate/[id number]
--- NOTE | 2016-02-29 08:10 | NUR ---
Patient sitting up in bed eating breakfast. Tolerating good PO intake. Denies nausea. Patient on 1.5L NC sats 96%. SOB noted with exertion. Denies pain. Patient instructed to cough and deep breath frequently. Patient up to BSC independently. Patient instructed to increase activity today. IV RFA patent 75cc/hr. No complaints at this time. Pleasant and cooperative with care. Will continue to monitor.
--- NOTE | 2016-02-29 10:01 | NUR ---
Patient complained of itching. Benadryl 25 mg given PO. No other complaints at this time. Will continue to monitor.
--- NOTE | 2016-02-29 11:01 | NUR ---
Benadryl effective. No complaints at this time. Will continue to monitor.
--- NOTE | 2016-02-29 12:38 | NUR ---
Patient in bed resting at this time. Room air sats 96%. Patient encouraged to ambulate in hallways. Tele Sinus tachy HR 109. MD aware. No sob at rest. Patient states she is feeling better today. No complaints at this time. Pleasant and cooperative with care. Will continue to monitor.
--- NOTE | 2016-02-29 13:40 | NUR ---
Patient back to bed from ambulating in hallways. Patient tolerating it fair to poor. Sats on room air while ambulating 92-93%. HR 112-127. Patient was sob with ambulating. No other complaints at this time. Pleasant and cooperative with care. Will continue to monitor.
--- NOTE | 2016-02-29 21:27 | NUR ---
PT RESTING IN BED. ALERT AND ORIENTED X3. NO COMPLAINTS OF PAIN, NO PALPIATIONS. NO SOB WHILE IN BED - PT COMPLAINT OF SOB WITH AMBULATION. IV TO RH UNREMARKABLE - IV INFUSING AT 75/HR. NC AT 1.5 LITERS - O2 SATS AT 95%. SCDS BILAT. TELE SHOWS SINUS RHYTHM - HEART RAET AT 96. MOVING AROUND IN BED ON OWN. PT GIVEN HS SNACK - BLOOD GLUCOSE AT 238 - COVERED WITH 5 UNTIS INSULIN. CALL LIGHT WITHIN REACH. NO FURTHER REQUESTS AT THIS TIME.
--- NOTE | 2016-02-29 22:53 | NUR ---
PT IS ON ROOM AIR - O2 SATSA T 92%.
--- NOTE | 2016-03-01 00:29 | NUR ---
PT IS SCRATCHING AND ITCHING HANDS - REQUEST BENADRYL PO - 25MG PO DOSE GIVEN - DR LIZET MENDOZA.
[2016-03-01 01:53] VITALS: BP 137/68
--- NOTE | 2016-03-01 05:40 | NUR ---
PT RESTING , RN STATED NOT TO BOTHER PT. WEIGHT IS DRAMATICALLY DIFFERENT FROM PREVIOUS WEIGHT WILL PASS ON TO DAYSHIFT TO RE-ZERO PT'S BED WHEN SHE GETS UP FOR THE DAY AND RE-WEIGH PT.
--- NOTE | 2016-03-01 06:13 | NUR ---
PT SLEEPING, AWAKES EASILY TO VOICE FOR AM MEDS. 02 SATS AT 95% ON ROOM AIR. HEART RATE AT 87. NO NOTABLE CHANGES. NO REQUESTS THIS AM. CALL LIGHT WITHIN REACH.
[2016-03-01 07:29] VITALS: BP 159/84
--- NOTE | 2016-03-01 08:37 | Progress Note ---
Subjective General Note Date: March 01, 2016 Admission Date: February 28, 2016 Hospital Day: 3 PCP: Suzie Onrelas M.D. Status: Inpatient Advanced Directive: FULL CODE Room: 304 Brief History: The patient is a 55-year-old white female with a significant past mental history of COPD who presented to [facility] emergency department secondary to complaints of shortness of breath. [facility] ER evaluation was consistent with exacerbation of COPD. Secondary to the above, the patient was admitted by Jovanny Garcia M.D. for further evaluation and treatment For other history present illness, past medical history, family history, social history, review of systems, and admission physical examination please see the patient's history and physical examination and ER visit note in the patient's medical record. Subjective: The patient has persistent mild shortness of breath. Significant anxiety which has improved with antianxiety agents. Slightly improved exercise tolerance. Ready for discharge. Patient requests: No specific. Medications and Allergies Medications Current Medications Sig/Patrick Start time Last Medication Dose Route Stop Time Status Admin Prednisone 20 MG BID 02/28 1445 AC 03/01 PO 0828 Diphenhydramine HCl 25 MG Q6H PRN 02/28 0900 AC 02/28 PO 2356 Albuterol/Ipratropium 3 ML RTQ6H 02/27 0800 AC 02/28 IN 2347 Insulin Human Lispro See Dose ACHS 02/27 0730 AC 03/01 Insts (1) SC 0828 Lorazepam 0.5 MG Q6H PRN 02/27 0700 AC 02/28 PO 2340 Sodium Chloride 1,000 ML ASDIRECTED 02/27 0700 AC 02/28 IV 1121 Acetaminophen See Dose Q4H PRN 02/27 0645 AC Insts (2) PO Albuterol Sulfate 2.5 MG RTQ2H PRN 02/27 0645 AC IN Pantoprazole Sodium 40 MG DAILY@0600 02/27 0600 AC 03/01 IV 0609 Dose Instructions: (1)Insulin Human Lispro: MEDIUM DOSE: ACCUCHECK AND SLIDING SCALE >>To change sliding scale DISCONTINUE this order and enter a NEW order. Thanks< (2)Acetaminophen: 325 - 650 MG Allergies Coded Allergies: Codeine (Severe, 03/01/16) Metoclopramide (Severe, 03/01/16) Morphine (Severe, 03/01/16) Physical Exam Vital Signs / I&Os Vital Signs Date Time Temp Pulse Resp B/P Pulse O2 O2 Flow FiO2 Ox Delivery Rate 03/01 0729 97.7 85 20 159/84 93 Room Air 03/01 0153 97.5 99 19 137/68 94 Room Air 02/28 2348 1.5 02/28 2229 98.2 99 20 121/69 94 Room Air 02/28 2017 Nasal 1.5 Cannula 02/28 1914 1.0 02/28 1912 115 95 02/28 1846 97.5 104 15 137/69 95 Nasal 1.0 Cannula 02/28 1450 97.9 02/28 1418 1.0 02/28 1336 101 22 136/69 97 Nasal 1.5 Cannula 02/28 1300 108 29 136/69 97 Nasal 1.5 Cannula 02/28 1200 108 21 130/81 96 Nasal 1.5 Cannula 02/28 1100 112 23 133/67 96 Nasal 1.5 Cannula 02/28 1000 97.9 113 27 133/83 95 Nasal Cannula 02/28 0900 122 25 117/96 95 Nasal 1.5 Cannula I&O 03/01 0000 02/28 1600 02/28 0800 Intake Total 1798 1630 1462 Output Total 1500 1700 1050 Balance 298 -70 412 General Appearance Alert, Oriented X3, Cooperative, No acute distress Lungs Slightly decreased air movement. No significant wheezes. Cardiovascular Regular rate and rhythm, Normal S1 and S2 Abdomen Normal bowel sounds, Soft Extremities No cyanosis, No clubbing, No edema Neurological Grossly normal Psych/Mental Status Mental status normal, Mood normal LAB Results Laboratory Tests 03/01 0520 Chemistry Plasma Sodium (136 - 145 mmol/L) 140 Plasma Potassium (3.5 - 5.1 mmol/L) 4.1 Plasma Chloride (98 - 107 mmol/L) 104 CO2 (Enzymatic) (21 - 32 mmol/L) 26 BUN (7 - 18 mg/dL) 15 Creatinine (0.6 - 1.3 mg/dL) 0.7 Est GFR ( Amer) (mL/min) >60 Est GFR (Non-Af Amer) (mL/min) >60 Glucose (70 - 110 mg/dL) 203 Plasma Calcium (8.5 - 10.1 mg/dL) 8.9 Total Bilirubin (0.0 - 1.0 mg/dL) 0.3 AST (15 - 37 U/L) 16 ALT (12 - 78 U/L) 81 Alkaline Phosphatase (46 - 116 U/L) 63 Total Protein (6.4 - 8.2 g/dL) 6.5 Albumin (3.3 - 5.0 g/dL) 3.5 Hematology WBC (4.5 - 11.5 K/uL) 20.1 RBC (4.00 - 5.20 M/uL) 4.08 Hgb (12.0 - 16.0 gm/dL) 12.6 Hct (36.0 - 46.0 %) 38.6 MCV (80 - 100 fL) 95 MCH (26 - 34 pg) 31 RDW (11.6 - 14.8 %) 14.1 Neut % (Auto) (50 - 75 %) 92 Lymph % (Auto) (25 - 40 %) 7 [place] % (Auto) (3 - 14 %) 1 Eos % (Auto) (0 - 4 %) 0 Baso % (Auto) (0 - 2 %) 0 Band Neutrophils % (0 - 8 %) 0 Metamyelocytes % (0 - 1 %) 0 Myelocytes (0 - 1 %) 0 Other Cell Type 0 Plt Count, EDTA (150 - 400 K/uL) 283 Anisocytosis (manual) 1+ PUBS MCHC (31 - 37 g/dL) 33 Assessment and Plan Problem List 1. COPD exacerbation Plan -much improved -Discharge today -See discharge instructions 2. Nicotine dependence Status Chronic Onset Date Unknown Plan -patient underwent smoking cessatiation -Encouraged smoking abstinence post discharge. 3. Abnormal LFTs Status Acute Onset Date Unknown Plan -patient with mild elevation of ALT, improving on discharge -No further evaluation -Outpatient follow-up with PCP. 4. Hyperglycemia Status Acute Onset Date Unknown Plan -patient with persistent hyperglycemia. -History of hyperglycemia/diabetes mellitus -hemoglobin A1c elevated at 6.9% -Discharge on metformin 500 mg by mouth twice a day -Outpatient follow-up with PCP/diabetic education Current status: Good, improved Anticipated discharge date: Today Anticipated discharge placement: Home Patient care time: Time spent in chart review, patient interview, physical exam, CPOE, and care documentation: 30 minutes Visit to patient today: 2 Complexity of care: Moderate E&M Codes Discharge: Inpt >30 min spent/[id number]
--- NOTE | 2016-03-01 09:43 | NUR ---
ALERT AND ORIENTED PT WHO C/O RED ITCHY HANDS AFTER RECEIVING PREDNISONE. BENADRYL AND ATIVAN GIVEN WITH GOOD RESULTS. IV RH INTACT AND INFUSING WITHOUT DIFFICULTY. PT AMBULATING IN ROOM.
[2016-03-01 10:02] VITALS: BP 138/87
--- NOTE | 2016-03-01 11:15 | Discharge Summary ---
Discharge Summary Report Admit Date 02/28/16 Discharge Date 03/01/16 Admission Diagnosis 1. Exacerbation of COPD Discharge Diagnosis 1. Exacerbation of COPD 2. Diabetes mellitus 3. Elevated LFTs 4. Generalized anxiety Disorder Brief History The patient is a 55-year-old white female with a significant past medical history of COPD who presented to [facility] emergency department secondary to complaints of shortness of breath. [facility] ER evaluation was consistent with exacerbation of COPD. Secondary to the above, the patient was admitted by Jovanny Garcia M.D. for further evaluation and treatment For other history present illness, past medical history, family history, social history, review of systems, and admission physical examination please see the patient's history and physical examination and ER visit note in the patient's medical record. Hospital Course The following problems and their management were noted during the patient's hospitalization: 1. Exacerbation of COPD The patient presented with findings of exacerbation of COPD. She responded well to combination of DuoNeb, albuterol, IV corticosteroids, and O2 supplementation. Her symptoms improved fairly rapidly. At the time of discharge she required no ongoing O2 supplementation. She was discharged on DuoNeb, albuterol, and by mouth prednisone taper. She will follow-up with next week. 2. Diabetes mellitus The patient was noted to have finding hyperglycemia. Hemoglobin A1c was elevated at 6.9%. She was discharged on metformin 500 mg by mouth twice a day. She will follow-up with her PCP next week. Outpatient diabetic education. 3. Elevated LFTs The patient had mild elevation of ALT.. This was improving on discharge. Outpatient follow-up with PCP. 4. Generalized anxiety disorder The patient exhibited generalized anxiety disorder during her hospitalization. She was treated with Ativan 0.5 mg by mouth 3 times a day. This was continued outpatient. She will follow-up with regarding this issue post discharge. Lab/Imaging Laboratory Tests 03/01 03/01 0520 0500 Chemistry Plasma Sodium (136 - 145 mmol/L) 140 Plasma Potassium (3.5 - 5.1 mmol/L) 4.1 Plasma Chloride (98 - 107 mmol/L) 104 CO2 (Enzymatic) (21 - 32 mmol/L) 26 BUN (7 - 18 mg/dL) 15 Creatinine (0.6 - 1.3 mg/dL) 0.7 Est GFR ( Amer) (mL/min) >60 Est GFR (Non-Af Amer) (mL/min) >60 Glucose (70 - 110 mg/dL) 203 Plasma Calcium (8.5 - 10.1 mg/dL) 8.9 Total Bilirubin (0.0 - 1.0 mg/dL) 0.3 AST (15 - 37 U/L) 16 ALT (12 - 78 U/L) 81 Alkaline Phosphatase (46 - 116 U/L) 63 Total Protein (6.4 - 8.2 g/dL) 6.5 Albumin (3.3 - 5.0 g/dL) 3.5 Procalcitonin Pending Hematology WBC (4.5 - 11.5 K/uL) 20.1 RBC (4.00 - 5.20 M/uL) 4.08 Hgb (12.0 - 16.0 gm/dL) 12.6 Hct (36.0 - 46.0 %) 38.6 MCV (80 - 100 fL) 95 MCH (26 - 34 pg) 31 RDW (11.6 - 14.8 %) 14.1 Neut % (Auto) (50 - 75 %) 92 Lymph % (Auto) (25 - 40 %) 7 [place] % (Auto) (3 - 14 %) 1 Eos % (Auto) (0 - 4 %) 0 Baso % (Auto) (0 - 2 %) 0 Band Neutrophils % (0 - 8 %) 0 Metamyelocytes % (0 - 1 %) 0 Myelocytes (0 - 1 %) 0 Other Cell Type 0 Plt Count, EDTA (150 - 400 K/uL) 283 Anisocytosis (manual) 1+ PUBS MCHC (31 - 37 g/dL) 33 Discharge Instructions/Meds For other recommendations regarding discharge diet, activity, followup, and discharge medications please see the patient's discharge instructions. Discharge condition: Fair, improved Greater than 30 min. was spent in the patient's discharge preparation including discharge interview and physical examination, progress note, discharge instructions, and discharge summary The patient was interviewed and examined on the day of discharge. E&M Codes Discharge: Inpt >30 min spent/[id number]
[2016-03-01] MEDS ORDERED: BENADRYL25 MG PO (11:16)
[2016-03-01] MEDS ORDERED: IPRATROPIUM BROMIDE/ IN (11:20)
[2016-03-01] MEDS ORDERED: PREDNISONE20 MG PO (11:20)
[2016-03-01] MEDS ORDERED: METFORMIN HCL500 MG PO (11:20)
[2016-03-01] MEDS ORDERED: ALBUTEROL2.5 MG/3 M IN (11:20)
[2016-03-01] MEDS ORDERED: ATIVAN0.5 MG PO (11:22)
--- NOTE | 2016-03-01 11:25 | Provider's Discharge Care Plan ---
Problem, Goal, Plan Problem List 1. COPD exacerbation Goals: Improve disease control, Prevent disease progress Instructions: Follow up as directed, Take meds as directed 2. Nicotine dependence Goals: Improve disease control, Prevent disease progress Instructions: Follow up as directed, Take meds as directed, Stop smoking 3. Diabetes mellitus Goals: Improve disease control, Improved health/wellness, Improve nutrition status, Prevent disease progress Instructions: Follow up as directed, Take meds as directed, Follow-up with your physician to discuss diabetic management. Enroll in diabetic education. Metformin 500 mg by mouth twice a day. Consistent carbohydrate diet
--- NOTE | 2016-03-01 12:18 | NUR ---
NUTRITION NOTE: Pt with new dx/o diabetes. Per hospitalist, pt has been advised to follow up with PCP regarding diabetic management. Pt has been approved for referral to diabetes and nutrition education program as an out patient. Nutrition education prior to d/c today.
[2016-03-01] MEDS ORDERED: NEBULIZER IN (13:40)
--- NOTE | 2016-03-01 14:01 | NUR ---
DISCHARGE INSTRUCTIONS REVIEWED WITH PT AND . IV WAS DISCONTINUED WITHOUT DIFFICULTY. PT AMBULATING WITHOUT SOB AND GETTING ALL HER BELONGINGS. ALL QUESTIONS ANSWERED. NEW RX CALLED INTO [facility]. NEBULIZER BEING HANDLED BY DISCHARGE PLANNING. WILL BE DISCHARGED HOME WITH STAFF ESCORT DOWN.
== END 2016-03-01 14:15 | disposition home or self-care (01) | DRG 192 ==
LOC: ED SRH 03:14 → CC SRH 05:26 → TRANS SRH 05:26 → CC SRH 06:55
PROVIDERS: ADMIT Family Medicine
PROC: 3E0234Z Introduction of Serum, Toxoid and Vaccine into Muscle, Percutaneous Approach (ICD-10-PCS; principal; 2016-02-29)
DX: J44.1 Chronic obstructive pulmonary disease with (acute) exacerbation (principal); R09.02 Hypoxemia; F17.210 Nicotine dependence, cigarettes, uncomplicated; R03.0 Elevated blood-pressure reading, without diagnosis of hypertension; E11.65 Type 2 diabetes mellitus with hyperglycemia; Z79.84 Long term (current) use of oral hypoglycemic drugs; Z23 Encounter for immunization; L29.9 Pruritus, unspecified; R94.5 Abnormal results of liver function studies; F41.9 Anxiety disorder, unspecified; F41.1 Generalized anxiety disorder
CPT/HCPCS: 29257; 90074; 90098; 90100; 91286; 91295; 91320; 91400; 91556; 91643; 92132; 92720; 93004; 95059; 95061

== ENCOUNTER 2016-03-15 09:11 | Outpatient (CLI) | payer OTHER ==
[~2016-03-15 09:11] MED LIST: ALBUTEROL2.5 MG/3 M IN; ATIVAN0.5 MG PO; BENADRYL25 MG PO; IPRATROPIUM BROMIDE/ IN; METFORMIN HCL500 MG PO; NEBULIZER IN; PREDNISONE20 MG PO
== END 2016-03-15 23:00 ==
LOC: RT SRH 09:11
DX: J98.8 Other specified respiratory disorders (principal)

== ENCOUNTER 2016-04-24 15:38 | Outpatient (CLI) | payer OTHER ==
--- NOTE | 2016-04-24 17:00 | DIAGNOSTIC IMAGING REPORT ---
PROCEDURE: MG BILATERAL SCREENING W/CAD INDICATION: Pain. New baseline. TECHNIQUE: Bilateral CC and MLO digital views. COMPARISON: FINDINGS: Computer-aided detection applied. Mildly to moderately dense. No evidence of mass or suspicious calcification. IMPRESSION: 1. Negative mammogram RESULT CODE: 1- Negative. A. A negative report should not delay biopsy if a dominant or clinically suspicious mass is present. 10-15% of cancers are not identified by x-ray. B. A negative report may reinforce clinical impression. C. Adenosis and dense breasts may obscure an underlying neoplasm. D. False positive reports average 6-10%. E.. A yearly screening mammogram is recommended. A reminder letter will be scheduled.
== END 2016-04-24 23:00 ==
LOC: MAM SRH 15:38
DX: Z12.31 Encounter for screening mammogram for malignant neoplasm of breast (principal)

== ENCOUNTER 2016-05-13 14:30 | Emergency (ER) | payer OTHER ==
--- NOTE | 2016-05-13 17:04 | DIAGNOSTIC IMAGING REPORT ---
PROCEDURE: XR SHOULDER 2 OR MORE VW-LEFT INDICATION: TRAUMA/INJURY TECHNIQUE: Three views. COMPARISON: None. FINDINGS: There is a dystrophic calcification of the left rotator cuff. Osseous structures and joint spaces are normal. No evidence of fracture. IMPRESSION: 1. Dystrophic calcification of the left rotator cuff consistent with calcific tendinosis (acute or chronic). 2. Otherwise negative left shoulder.
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
--- NOTE | 2016-05-13 17:33 | ED CLINICAL REPORT ---
Clinical Report - Physicians/Mid Levels [facility] [address] [place] [address] 05/13/2016 14:30 Patient: ALFREDO KHAN Time Seen: 15:24 May 13 2016. Arrived- By private vehicle. Historian- patient. CPT: ER phys charges level 4 (#[id number]). HISTORY OF PRESENT ILLNESS Chief Complaint: PARESTHESIA. pain LUE. An injury may have occurred. This occurred yesterday. It is described as radiating to the left upper extremity and hand. The patient has had numbness, (occasional tingling in fingers: Gone now.). She has had tingling. No weakness, impaired speech or swallowing, visual disturbance or recent fall. No difficulty walking. This started yesterday Was working hard in the yard 5 days ago. and is still present (pain). (paresthesia). At its maximum deficit described as mild. When seen in the E.D., it was gone. No dizziness, altered mental status, seizure or blackouts. Usually is alert and oriented X3 and has normal mobility. Similar symptoms previously: None. Recent medical care: Not recently seen/assessed. REVIEW OF SYSTEMS No fever, headache, head injury, chest pain or difficulty breathing. No cough, sputum production, sore throat, abdominal pain or nausea. No diarrhea, black stools, difficulty with urination, skin rash or enlarged lymph nodes. No vomiting or bloody stools. The patient has had joint pain. All systems otherwise negative, except as recorded above. PAST HISTORY ( Hypoxia. Emphysema. COPD - Chronic Obstructive Pulmonary Disease. - ADDITIONAL SURGERIES: Hysterectomy.). Medications: MetFORMIN HCl Oral 500 mg, 2x a day. Advair Diskus Inhalation 1 puff, daily. Allergies: Codeine.(vomiting). SOCIAL HISTORY Former smoker. Occasional alcohol use. No drug use. ADDITIONAL NOTES The nursing notes have been reviewed. PHYSICAL EXAM Vital Signs: 05/13/2016 14:35 BP: 162/92. HR: 87. RR: 18. O2 saturation: 94%. Temp: 97.6 F. Pain level now: 08/14. Appearance: Alert. Patient in mild distress. Head: Head atraumatic. Eyes: Pupils equal, round and reactive to light. Neck: Normal inspection. Neck supple. CVS: Normal heart rate and rhythm. Heart sounds normal. Pulses normal. No decreased pulses. Respiratory: No respiratory distress. Breath sounds normal. Abdomen: Soft and nontender. Back: Normal inspection. Skin: No cyanosis. Skin not cool on palpation. Extremities: (point tender over the anterior and psosterior soft tissue of the left shoulder. Painful ROM in any direction.). Neuro: Alert. Oriented X 3. Mood/affect normal. Speech normal. Cranial nerves normal (as tested). No cerebellar findings. No motor deficit. No sensory deficit. Reflexes normal. LABS, X-RAYS, AND EKG Lt Shoulder X-ray: No fracture. (Calcium deposit left shoulder. No significant DJD.). Views: AP with external rotation and AP with internal rotation. Technique: good. The X-rays were independently viewed by me and interpreted contemporaneously by me. PROGRESS AND PROCEDURES Course of Care: Toradol 60 mg IM Patient is stable. Symptoms much better. Patient/family counseled. Disposition: Discharged in improved condition. CLINICAL IMPRESSION Left soft tissue shoulder pain. INSTRUCTIONS Wear simple sling until released. No strenuous activity. Warnings: Further evaluation is necessary. GENERAL WARNINGS: Return or contact your physician immediately if your condition worsens or changes unexpectedly, if not improving as expected, or if other problems arise. Your Current Medications: CONTINUE TAKING THE FOLLOWING MEDICATIONS: Advair Diskus Inhalation : 1 puff daily. MetFORMIN HCl Oral : 500 mg 2x a day. Prescription Medications: Flexeril 5 mg: take 1 orally every 8 hours as needed for muscle spasm or pain. Dispense fifteen (15). No refills. Substitution is permissible. Oxycodone/APAP 5 mg/325 mg: take 1 tablet orally every 6 hours as needed for pain. Dispense fifteen (15). No refills. Prednisone 40 mg a day for 3 days. OTC Medications: Motrin IB 200 mg (available over the counter): take 2 orally every 6 hours for 5 days, as needed for pain Follow-up: Follow up with your doctor in five days. Call for an appointment. Understanding of the discharge instructions verbalized by patient. Discharge instructions reviewed with and understanding was verbalized by spouse. (Electronically signed by Raj Boothe MD 05/14/2016 12:24)
--- NOTE | 2016-05-13 17:33 | ED ORDER SUMMARY ---
..... Patient: ALFREDO KHAN OrderSheet [facility] VisitID: [id number] [address] [place] [address] 55y, F Registration Date/Time: 05/13/2016 ORDER SHEET Weight: 77.1 kg (stated) Allergies: Codeine GENERAL ORDERS: Shoulder 2V or more Left Urgent (15:32 05/13/2016 Karolina YO) (Ack 16:09 [facility]) (18:01 LSullivan R.N.) Sling - arm (17:27 05/13/2016 Karolina YO) (18:10 LSullivan R.N.) MEDICATION ORDERS: Toradol IM 60 mg (NOW) (15:32 05/13/2016 Karolina YO) (15:38 LSullivan R.N.) IV FLUIDS: ORDER SHEET NOTES: [Electronically signed by Nyasia Rubio R.N. (18:12 05/13/2016)] [Electronically signed by Raj Boothe MD (12:24 05/14/2016)] [Electronically locked/signed by Nyasia Rubio R.N. (18:12 05/13/2016)]
--- NOTE | 2016-05-13 17:33 | ED NURSING NOTES ---
Clinical Report - Nurses [facility] [place] [address] 05/13/2016 14:30 Patient: ALFREDO KHAN TRIAGE Triage time 14:35. Acuity: LEVEL 4. Chief Complaint: LEFT UPPER EXTREMITY PAIN. Location of symptoms- left shoulder, left arm and left elbow (pain shoots down arm, then finger feel numb). Alert. SEPSIS SCREEN: Sepsis Screen. Negative (no infection suspected/documented). ANA MARÍA COMA SCORE: [place] Coma Scale: 15- eyes open spontaneously (4); best verbal response- oriented x 4 (5); best motor response- obeys commands (6). --14:41 Nyasia Rubio R.N. 14:35 05/13/16. BP: 162/92. HR: 87. RR: 18. O2 saturation: 94%. Temp: 97.6 F. Pain level now: 08/14. --14:41 Nyasia Rubio R.N. Weight: 77.1 kg stated. Height/Length: 62 inches Per Patient. BMI: 31.1. --14:35 Nyasia Rubio R.N. Medications Advair Diskus Inhalation 1 puff, daily. --14:39 Nyasia Rubio R.N. MetFORMIN HCl Oral 500 mg, 2x a day. --14:39 Nyasia Rubio R.N. Allergies Codeine.(vomiting) --14:39 Nyasia Rubio R.N. History Arrived by private vehicle. Historian: patient. Accompanied by (dropped off by yudith). Primary physician (Guillermo). An injury may have occurred. This occurred yesterday. It is described as radiating to the left upper extremity and hand. PAST MEDICAL HX: Type II diabetes mellitus treated with diet and oral medication. SOCIAL HX: Former smoker, end date 02/2016. Alcohol use; consumes two glasses of wine occasionally. The patient was not exposed to MRSA. SELF HARM ASSESSMENT: A self harm assessment was performed. The patient answered "no" to the question "Do you have thoughts of harming or killing yourself?". ABUSE ASSESSMENT: Abuse assessment: ("yes") The patient was asked "Do you feel safe in your home?". --14:41 Nyasia Rubio R.N. 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 --14:42 Nyasia Rubio R.N. PROBLEMS: Hypoxia. Emphysema. COPD - Chronic Obstructive Pulmonary Disease. --14:35 Nyasia Rubio R.N. ADDITIONAL SURGERIES: Hysterectomy. --14:35 Nyasia Rubio R.N. Interventions ID band on patient. To room. --14:41 Nyasia Rubio R.N. PHYSICAL ASSESSMENT 14:42 05/13/16. EXTREMITIES: Left shoulder. Left arm. Left forearm: tenderness. --14:42 Nyasia Rubio R.N. 14:43. GENERAL / NEURO / PSYCH: ( Pt has palpable radial pulse on left wrist). --15:27 Nyasia Rubio R.N. NURSING PROGRESS NOTES 14:42 05/13/16. Patient identifiers checked. Call light placed in reach. Bed placed in lowest position. Patient ready for evaluation- chart flagged. --14:42 Nyasia Rubio R.N. 14:45 05/13/16. Cold pack applied. Extremity elevated. --14:45 Nyasia Rubio R.N. 15:38 05/13/2016 Toradol (Ketorolac Tromethamine) IM 60 mg given. Given in the left gluteus jose. Allergies verified and confirmed 5 rights. --15:38 Nyasia Rubio R.N. 15:38 05/13/16. Patient transported to radiology with tech. --15:38 Nyasia Rubio R.N. 15:45 05/13/16. Patient returned from radiology with tech. --15:45 Nyasia Rubio R.N. Overall patient status is improved- she states feels better (pain 4/10 when moves, 0/10 when holds still). --17:11 Nyasia Rubio R.N. 17:13 05/13/16. BP: 118/87. HR: 94. RR: 18. O2 saturation: 95%. --17:13 Nyasia Rubio R.N. 18:03. Sling applied to left arm by nurse; distal pulses intact, sensation intact and motor function within normal limits. --18:10 Nyasia Rubio R.N. DISPOSITION / DISCHARGE Departure time: 180. Condition at departure: improved. No learning barriers present. Reviewed medication(s) information. Prescription(s) given to the patient. Reviewed referral to family practice for followup. Patient and reading aide verbalized understanding. Written instructions provided. The patient was discharged home and accompanied by reading aide. She left the Emergency Department ambulatory and via private vehicle. --18:12 Nyasia Rubio R.N. 18:03 05/13/16. BP: 131/80. HR: 88. RR: 18. O2 saturation: 95%. Temp: deferred. Pain level now: 04/14. --18:12 Nyasia Rubio R.N. Locked/Released at 05/13/2016 18:13 by Nyasia Rubio R.N.
--- NOTE | 2016-05-13 17:33 | ED ORDER SUMMARY ---
..... Patient: ALFREDO KHAN OrderSheet [facility] VisitID: [id number] [address] [place] [address] 55y, F Registration Date/Time: 05/13/2016 ORDER SHEET Weight: 77.1 kg (stated) Allergies: Codeine GENERAL ORDERS: Shoulder 2V or more Left Urgent (15:32 05/13/2016 Karolina YO) [facility] (18:01 LSullivan R.N.) Sling - arm (17:27 05/13/2016 Karolina YO) (18:10 LSullivan R.N.) MEDICATION ORDERS: Toradol IM 60 mg (NOW) (15:32 05/13/2016 Karolina YO) (15:38 LSullivan R.N.) IV FLUIDS: ORDER SHEET NOTES: [Electronically signed by Nyasia Rubio R.N. (18:12 05/13/2016)] [Electronically signed by Raj Boothe MD (12:24 05/14/2016)] [Electronically locked/signed by Nyasia Rubio R.N. (18:12 05/13/2016)]
--- NOTE | 2016-05-14 12:24 | ED DISCHARGE INSTRUCTIONS ---
Patient: ALFREDO KHAN General Instructions [facility] VisitID: [id number] [address] [place] [place] [address] 55y, F Registration Date/Time: 05/13/2016 Left soft tissue shoulder pain. INSTRUCTIONS Wear simple sling until released. No strenuous activity. Warnings: Further evaluation is necessary. GENERAL WARNINGS: Return or contact your physician immediately if your condition worsens or changes unexpectedly, if not improving as expected, or if other problems arise. Your Current Medications: CONTINUE TAKING THE FOLLOWING MEDICATIONS: Advair Diskus Inhalation : 1 puff daily. MetFORMIN HCl Oral : 500 mg 2x a day. Prescription Medications: Flexeril 5 mg: take 1 orally every 8 hours as needed for muscle spasm or pain. Dispense fifteen (15). No refills. Substitution is permissible. Oxycodone/APAP 5 mg/325 mg: take 1 tablet orally every 6 hours as needed for pain. Dispense fifteen (15). No refills. Prednisone 40 mg a day for 3 days. OTC Medications: Motrin IB 200 mg (available over the counter): take 2 orally every 6 hours for 5 days, as needed for pain Follow-up: Follow up with your doctor in five days. Call for an appointment. Understanding of the discharge instructions verbalized by patient. Discharge instructions reviewed with and understanding was verbalized by spouse. ADDITIONAL INFORMATION Sling A sling is designed to support your arm in a position of rest. It is used for injuries of the hand, forearm, upper arm, and shoulder. A shoulder that is immobilized too long can become stiff and lose range of motion. Follow up with your doctor as advised and do not use the sling longer than directed. Home Use: Leave the sling in place as long as directed by your doctor. Unless told otherwise, you may remove it when bathing, dressing, and when you go to sleep. The sling is adjustable. If it becomes loose, adjust it so that your forearm is horizontal (level with the ground). Your hand should be level with the elbow. Cyclobenzaprine Hydrochloride Oral tablet What is this medicine? CYCLOBENZAPRINE (sye kloe PAULINA eliseo preen) is a muscle relaxer. It is used to treat muscle pain, spasms, and stiffness. How should I use this medicine? Take this medicine by mouth with a glass of water. Follow the directions on the prescription label. If this medicine upsets your stomach, take it with food or milk. Take your medicine at regular intervals. Do not take it more often than directed. Talk to your sewing machine operator plastic zipper regarding the use of this medicine in children. Special care may be needed. What side effects may I notice from receiving this medicine? Side effects that you should report to your doctor or health physician assistant primary care as soon as possible: allergic reactions like skin rash, itching or hives, swelling of the face, lips, or tongue chest pain fast heartbeat hallucinations seizures vomiting Side effects that usually do not require medical attention (report to your doctor or health physician assistant primary care if they continue or are bothersome): headache What may interact with this medicine? Do not take this medicine with any of the following medications: cisapride droperidol flecainide grepafloxacin halofantrine levomethadyl MAOIs like Carbex, Eldepryl, Marplan, Nardil, and Parnate nilotinib pimozide probucol sertindole This medicine may also interact with the following medications: abarelix alcohol contrast dyes dolasetron guanethidine medicines for cancer medicines for depression, anxiety, or psychotic disturbances medicines to treat an irregular heartbeat medicines used for sleep or numbness during surgery or procedure methadone octreotide ondansetron palonosetron phenothiazines like chlorpromazine, mesoridazine, prochlorperazine, thioridazine some medicines for infection like alfuzosin, chloroquine, clarithromycin, levofloxacin, mefloquine, pentamidine, troleandomycin tramadol vardenafil What if I miss a dose? If you miss a dose, take it as soon as you can. If it is almost time for your next dose, take only that dose. Do not take double or extra doses. Where should I keep my medicine? Keep out of the reach of children. Store at room temperature between 15 and 30 degrees C (59 and 86 degrees F). Keep container tightly closed. Throw away any unused medicine after the expiration date. What should I tell my health care provider before I take this medicine? They need to know if you have any of these conditions: heart disease, irregular heartbeat, or previous heart attack liver disease thyroid problem an unusual or allergic reaction to cyclobenzaprine, tricyclic antidepressants, lactose, other medicines, foods, dyes, or preservatives or trying to get breast-feeding What should I watch for while using this medicine? Check with your doctor or health physician assistant primary care if your condition does not improve within 1 to 3 weeks. You may get drowsy or dizzy when you first start taking the medicine or change doses. Do not drive, use machinery, or do anything that may be dangerous until you know how the medicine affects you. Stand or sit up slowly. Your mouth may get dry. Drinking water, chewing sugarless gum, or sucking on hard candy may help. Ibuprofen Oral tablet What is this medicine? IBUPROFEN (eye BYOO proe fen) is a non-steroidal anti-inflammatory drug (NSAID). It is used for dental pain, fever, headaches or migraines, osteoarthritis, rheumatoid arthritis, or painful monthly periods. It can also relieve minor aches and pains caused by a cold, flu, or sore throat. How should I use this medicine? Take this medicine by mouth with a glass of water. Follow the directions on the prescription label. Take this medicine with food if your stomach gets upset. Try to not lie down for at least 10 minutes after you take the medicine. Take your medicine at regular intervals. Do not take your medicine more often than directed. A special MedGuide will be given to you by the pharmacist with each prescription and refill. Be sure to read this information carefully each time. Talk to your sewing machine operator plastic zipper regarding the use of this medicine in children. Special care may be needed. What side effects may I notice from receiving this medicine? Side effects that you should report to your doctor or health physician assistant primary care as soon as possible: allergic reactions like skin rash, itching or hives, swelling of the face, lips, or tongue black or bloody stools, blood in the urine or in vomit breathing problems changes in vision chest pain general ill feeling or flu-like symptoms nausea or vomiting redness, blistering, peeling or loosening of the skin, including inside the mouth slurred speech or weakness on one side of the body stomach pain unexplained weight gain or swelling unusually weak or tired yellowing of eyes or skin Side effects that usually do not require medical attention (report to your doctor or health physician assistant primary care if they continue or are bothersome): constipation or diarrhea dizziness gas or heartburn stomach upset What may interact with this medicine? Do not take this medicine with any of the following medications: cidofovir ketorolac methotrexate pemetrexed This medicine may also interact with the following medications: alcohol aspirin diuretics lithium other drugs for inflammation like prednisone warfarin What if I miss a dose? If you miss a dose, take it as soon as you can. If it is almost time for your next dose, take only that dose. Do not take double or extra doses. Where should I keep my medicine? Keep out of the reach of children. Store at room temperature between 15 and 30 degrees C (59 and 86 degrees F). Keep container tightly closed. Throw away any unused medicine after the expiration date. What should I tell my health care provider before I take this medicine? They need to know if you have any of these conditions: asthma cigarette smoker drink more than 3 alcohol containing drinks a day heart disease or circulation problems such as heart failure or leg edema (fluid retention) high blood pressure kidney disease liver disease stomach bleeding or ulcers an unusual or allergic reaction to ibuprofen, aspirin, other NSAIDS, other medicines, foods, dyes, or preservatives or trying to get breast-feeding What should I watch for while using this medicine? Tell your doctor or healthcare professional if your symptoms do not start to get better or if they get worse. This medicine does not prevent heart attack or stroke. In fact, this medicine may increase the chance of a heart attack or stroke. The chance may increase with longer use of this medicine and in people who have heart disease. If you take aspirin to prevent heart attack or stroke, talk with your doctor or health physician assistant primary care. Do not take other medicines that contain aspirin, ibuprofen, or naproxen with this medicine. Side effects such as stomach upset, nausea, or ulcers may be more likely to occur. Many medicines available without a prescription should not be taken with this medicine. This medicine can cause ulcers and bleeding in the stomach and intestines at any time during treatment. Ulcers and bleeding can happen without warning symptoms and can cause . To reduce your risk, do not smoke cigarettes or drink alcohol while you are taking this medicine. You may get drowsy or dizzy. Do not drive, use machinery, or do anything that needs mental alertness until you know how this medicine affects you. Do not stand or sit up quickly, especially if you are an older patient. This reduces the risk of dizzy or fainting spells. This medicine can cause you to bleed more easily. Try to avoid damage to your teeth and gums when you brush or floss your teeth. You have been given the following additional information: Sling Cyclobenzaprine Hydrochloride Oral tablet Ibuprofen Oral tablet No strenuous activity. (Electronically signed by Raj Boothe MD 05/14/2016 12:24)
--- NOTE | 2016-05-14 12:24 | ED MAR SUMMARY ---
..... Medication Administration Record [facility] [address] [place] [address] Patient: ALFREDO KHAN Visit ID: [id number] 55y, F Weight: 77.1 kg Height/Length: 62 in BMI: 31.1 ALLERGIES: Codeine Given 15:38 05/13/2016 Nyasia Rubio R.N. Medication Administered: TORADOL [IM] (KETOROLAC TROMETHAMINE), Dose: 60 mg IM. Medication Ordered: Toradol IM 60 mg (NOW).
--- NOTE | 2016-05-14 12:24 | ED MED RECONCILIATION SUMMARY ---
Patient: ALFREDO KHAN Medication Reconciliation Report [facility] VisitID: [id number] [address] [place] [address] 55y, F Registration Date/Time: 05/13/2016 Weight: 77.1 kg Height/Length: 62 in. BMI: 31.1 ALLERGIES: Codeine The patient's Home Medications are listed below: CONTINUE TAKING THE FOLLOWING MEDICATIONS: Advair Diskus Inhalation 1 puff, daily MetFORMIN HCl Oral 500 mg, 2x a day The source(s) of the original Home Medication information: Not obtained. The following Medications were given to the patient in the Emergency Department: Toradol [IM] IM 60 mg, administered: 05/13/2016 3:38:00 PM The following Medications were prescribed to the patient: Motrin IB 200 mg (available over the counter): take 2 orally every 6 hours for 5 days, as needed for pain -- Raj Boothe MD Prednisone 40 mg a day for 3 days. -- Raj Boothe MD Flexeril 5 mg: take 1 orally every 8 hours as needed for muscle spasm or pain. Dispense fifteen (15). No refills. Substitution is permissible. -- Raj Boothe MD Oxycodone/APAP 5 mg/325 mg: take 1 tablet orally every 6 hours as needed for pain. Dispense fifteen (15). No refills. -- Raj Boothe MD
--- NOTE | 2016-05-14 12:24 | ED MAR SUMMARY ---
..... Medication Administration Record [facility] [address] [place] [address] Patient: ALFREDO KHAN Visit ID: [id number] 55y, F Weight: 77.1 kg Height/Length: 62 in BMI: 31.1 ALLERGIES: Codeine Given 15:38 05/13/2016 Nyasia Rubio R.N. Medication Administered: TORADOL [IM] (KETOROLAC TROMETHAMINE), Dose: 60 mg IM. Medication Ordered: Toradol IM 60 mg (NOW).
--- NOTE | 2016-05-14 12:24 | ED DISCHARGE INSTRUCTIONS ---
Patient: ALFREDO KHAN General Instructions [facility] VisitID: [id number] [address] [place] [address] 55y, F Registration Date/Time: 05/13/2016 Left soft tissue shoulder pain. INSTRUCTIONS Wear simple sling until released. No strenuous activity. Warnings: Further evaluation is necessary. GENERAL WARNINGS: Return or contact your physician immediately if your condition worsens or changes unexpectedly, if not improving as expected, or if other problems arise. Your Current Medications: CONTINUE TAKING THE FOLLOWING MEDICATIONS: Advair Diskus Inhalation : 1 puff daily. MetFORMIN HCl Oral : 500 mg 2x a day. Prescription Medications: Flexeril 5 mg: take 1 orally every 8 hours as needed for muscle spasm or pain. Dispense fifteen (15). No refills. Substitution is permissible. Oxycodone/APAP 5 mg/325 mg: take 1 tablet orally every 6 hours as needed for pain. Dispense fifteen (15). No refills. Prednisone 40 mg a day for 3 days. OTC Medications: Motrin IB 200 mg (available over the counter): take 2 orally every 6 hours for 5 days, as needed for pain Follow-up: Follow up with your doctor in five days. Call for an appointment. Understanding of the discharge instructions verbalized by patient. Discharge instructions reviewed with and understanding was verbalized by spouse. ADDITIONAL INFORMATION Sling A sling is designed to support your arm in a position of rest. It is used for injuries of the hand, forearm, upper arm, and shoulder. A shoulder that is immobilized too long can become stiff and lose range of motion. Follow up with your doctor as advised and do not use the sling longer than directed. Home Use: Leave the sling in place as long as directed by your doctor. Unless told otherwise, you may remove it when bathing, dressing, and when you go to sleep. The sling is adjustable. If it becomes loose, adjust it so that your forearm is horizontal (level with the ground). Your hand should be level with the elbow. Cyclobenzaprine Hydrochloride Oral tablet What is this medicine? CYCLOBENZAPRINE (sye kloe PAULINA eliseo preen) is a muscle relaxer. It is used to treat muscle pain, spasms, and stiffness. How should I use this medicine? Take this medicine by mouth with a glass of water. Follow the directions on the prescription label. If this medicine upsets your stomach, take it with food or milk. Take your medicine at regular intervals. Do not take it more often than directed. Talk to your imaging engineer regarding the use of this medicine in children. Special care may be needed. What side effects may I notice from receiving this medicine? Side effects that you should report to your doctor or health child care director as soon as possible: allergic reactions like skin rash, itching or hives, swelling of the face, lips, or tongue chest pain fast heartbeat hallucinations seizures vomiting Side effects that usually do not require medical attention (report to your doctor or health child care director if they continue or are bothersome): headache What may interact with this medicine? Do not take this medicine with any of the following medications: cisapride droperidol flecainide grepafloxacin halofantrine levomethadyl MAOIs like Carbex, Eldepryl, Marplan, Nardil, and Parnate nilotinib pimozide probucol sertindole This medicine may also interact with the following medications: abarelix alcohol contrast dyes dolasetron guanethidine medicines for cancer medicines for depression, anxiety, or psychotic disturbances medicines to treat an irregular heartbeat medicines used for sleep or numbness during surgery or procedure methadone octreotide ondansetron palonosetron phenothiazines like chlorpromazine, mesoridazine, prochlorperazine, thioridazine some medicines for infection like alfuzosin, chloroquine, clarithromycin, levofloxacin, mefloquine, pentamidine, troleandomycin tramadol vardenafil What if I miss a dose? If you miss a dose, take it as soon as you can. If it is almost time for your next dose, take only that dose. Do not take double or extra doses. Where should I keep my medicine? Keep out of the reach of children. Store at room temperature between 15 and 30 degrees C (59 and 86 degrees F). Keep container tightly closed. Throw away any unused medicine after the expiration date. What should I tell my health care provider before I take this medicine? They need to know if you have any of these conditions: heart disease, irregular heartbeat, or previous heart attack liver disease thyroid problem an unusual or allergic reaction to cyclobenzaprine, tricyclic antidepressants, lactose, other medicines, foods, dyes, or preservatives or trying to get breast-feeding What should I watch for while using this medicine? Check with your doctor or health child care director if your condition does not improve within 1 to 3 weeks. You may get drowsy or dizzy when you first start taking the medicine or change doses. Do not drive, use machinery, or do anything that may be dangerous until you know how the medicine affects you. Stand or sit up slowly. Your mouth may get dry. Drinking water, chewing sugarless gum, or sucking on hard candy may help. Ibuprofen Oral tablet What is this medicine? IBUPROFEN (eye BYOO proe fen) is a non-steroidal anti-inflammatory drug (NSAID). It is used for dental pain, fever, headaches or migraines, osteoarthritis, rheumatoid arthritis, or painful monthly periods. It can also relieve minor aches and pains caused by a cold, flu, or sore throat. How should I use this medicine? Take this medicine by mouth with a glass of water. Follow the directions on the prescription label. Take this medicine with food if your stomach gets upset. Try to not lie down for at least 10 minutes after you take the medicine. Take your medicine at regular intervals. Do not take your medicine more often than directed. A special MedGuide will be given to you by the pharmacist with each prescription and refill. Be sure to read this information carefully each time. Talk to your imaging engineer regarding the use of this medicine in children. Special care may be needed. What side effects may I notice from receiving this medicine? Side effects that you should report to your doctor or health child care director as soon as possible: allergic reactions like skin rash, itching or hives, swelling of the face, lips, or tongue black or bloody stools, blood in the urine or in vomit breathing problems changes in vision chest pain general ill feeling or flu-like symptoms nausea or vomiting redness, blistering, peeling or loosening of the skin, including inside the mouth slurred speech or weakness on one side of the body stomach pain unexplained weight gain or swelling unusually weak or tired yellowing of eyes or skin Side effects that usually do not require medical attention (report to your doctor or health child care director if they continue or are bothersome): constipation or diarrhea dizziness gas or heartburn stomach upset What may interact with this medicine? Do not take this medicine with any of the following medications: cidofovir ketorolac methotrexate pemetrexed This medicine may also interact with the following medications: alcohol aspirin diuretics lithium other drugs for inflammation like prednisone warfarin What if I miss a dose? If you miss a dose, take it as soon as you can. If it is almost time for your next dose, take only that dose. Do not take double or extra doses. Where should I keep my medicine? Keep out of the reach of children. Store at room temperature between 15 and 30 degrees C (59 and 86 degrees F). Keep container tightly closed. Throw away any unused medicine after the expiration date. What should I tell my health care provider before I take this medicine? They need to know if you have any of these conditions: asthma cigarette smoker drink more than 3 alcohol containing drinks a day heart disease or circulation problems such as heart failure or leg edema (fluid retention) high blood pressure kidney disease liver disease stomach bleeding or ulcers an unusual or allergic reaction to ibuprofen, aspirin, other NSAIDS, other medicines, foods, dyes, or preservatives or trying to get breast-feeding What should I watch for while using this medicine? Tell your doctor or healthcare professional if your symptoms do not start to get better or if they get worse. This medicine does not prevent heart attack or stroke. In fact, this medicine may increase the chance of a heart attack or stroke. The chance may increase with longer use of this medicine and in people who have heart disease. If you take aspirin to prevent heart attack or stroke, talk with your doctor or health child care director. Do not take other medicines that contain aspirin, ibuprofen, or naproxen with this medicine. Side effects such as stomach upset, nausea, or ulcers may be more likely to occur. Many medicines available without a prescription should not be taken with this medicine. This medicine can cause ulcers and bleeding in the stomach and intestines at any time during treatment. Ulcers and bleeding can happen without warning symptoms and can cause . To reduce your risk, do not smoke cigarettes or drink alcohol while you are taking this medicine. You may get drowsy or dizzy. Do not drive, use machinery, or do anything that needs mental alertness until you know how this medicine affects you. Do not stand or sit up quickly, especially if you are an older patient. This reduces the risk of dizzy or fainting spells. This medicine can cause you to bleed more easily. Try to avoid damage to your teeth and gums when you brush or floss your teeth. You have been given the following additional information: Sling Cyclobenzaprine Hydrochloride Oral tablet Ibuprofen Oral tablet No strenuous activity. (Electronically signed by Raj Boothe MD 05/14/2016 12:24)
--- NOTE | 2016-05-14 12:24 | ED MED RECONCILIATION SUMMARY ---
Patient: ALFREDO KHAN Medication Reconciliation Report Located Within [facility] VisitID: [id number] [address] [place] [address] 55y, F Registration Date/Time: 05/13/2016 Weight: 77.1 kg Height/Length: 62 in. BMI: 31.1 ALLERGIES: Codeine The patient's Home Medications are listed below: CONTINUE TAKING THE FOLLOWING MEDICATIONS: Advair Diskus Inhalation 1 puff, daily MetFORMIN HCl Oral 500 mg, 2x a day The source(s) of the original Home Medication information: Not obtained. The following Medications were given to the patient in the Emergency Department: Toradol [IM] IM 60 mg, administered: 05/13/2016 3:38:00 PM The following Medications were prescribed to the patient: Motrin IB 200 mg (available over the counter): take 2 orally every 6 hours for 5 days, as needed for pain -- Raj Boothe MD Prednisone 40 mg a day for 3 days. -- Raj Boothe MD Flexeril 5 mg: take 1 orally every 8 hours as needed for muscle spasm or pain. Dispense fifteen (15). No refills. Substitution is permissible. -- Raj Boothe MD Oxycodone/APAP 5 mg/325 mg: take 1 tablet orally every 6 hours as needed for pain. Dispense fifteen (15). No refills. -- Raj Boothe MD
== END 2016-05-13 18:03 | disposition home or self-care (01) ==
LOC: ED SRH 14:30
DX: M25.512 Pain in left shoulder (principal); J44.9 Chronic obstructive pulmonary disease, unspecified; E11.9 Type 2 diabetes mellitus without complications; Z79.51 Long term (current) use of inhaled steroids; Z79.84 Long term (current) use of oral hypoglycemic drugs; Z87.891 Personal history of nicotine dependence; Z88.5 Allergy status to narcotic agent